=== PATIENT | female | born 1950 | race Caucasian/White ===

== ENCOUNTER → 2018-05-05 | Outpatient (CLI) | payer MEDICARE, OTHER ==
--- NOTE | 2018-05-07 09:39 | MM ---
Reason for exam: screening (asymptomatic). Last mammogram was performed 12 years and 8 months ago. History: Patient is postmenopausal. Took estrogen beginning at age 50. Took progesterone beginning at age 50. MG 3D Screening Mammo W/Cad Bilateral CC and MLO view(s) were taken. Prior study comparison: September 03, 2005, CAD bilateral diagnostic mammogram. September 27, 2003, left breast special view mammogram. There are scattered fibroglandular densities. No discrete abnormality. ASSESSMENT: Benign, BI-RAD 2 RECOMMENDATION: Routine screening mammogram of both breasts in 1 year.
== END ==
LOC: RADMAMWWP 13:30
PROVIDERS: ATTEND Family Medicine
DX: Z12.31 Encounter for screening mammogram for malignant neoplasm of breast (principal)
CPT/HCPCS: 77063; 77067

== ENCOUNTER 2019-08-23 12:29 | Inpatient (IN) | payer MEDICARE, OTHER ==
[2019-08-23] MEDS ORDERED: DILTIAZEM DRIP BOLUS FROM BAG 1 MG SOLN IV ONE ×3 (12:55→16:24)
--- NOTE | 2019-08-23 13:10 | ED ---
General Adult HPI - General Chief complaint: Arrhythmia/Palpitations Stated complaint: Tachy Time Seen by Provider: 08/23/19 12:41 Source: patient, family, RN notes reviewed Mode of arrival: ambulatory Limitations: no limitations - History of Present Illness Initial comments: Patient is a pleasant 69-year-old female presenting to the emergency department after being evaluated at primary care physician for tachycardia. Patient went to evaluation for complaints of sinus congestion. Patient denies any chest pain or palpitations. No fatigue or dyspnea. No history of previous arrhythmia. Patient states other than sinus congestion she is symptom-free. No fever. No leg pain or leg swelling. - Related Data Home Medications Medication Instructions Recorded Confirmed Lisinopril [Prinivil] 5 mg PO HS 08/23/19 08/23/19 amLODIPine [Norvasc] 10 mg PO DAILY 08/23/19 08/23/19 Allergies Allergy/AdvReac Type Severity Reaction Status Date / Time tetanus toxoid, adsorbed Allergy Swelling Verified 08/23/19 14:10 codeine AdvReac Abdominal Verified 08/23/19 14:10 Pain pseudoephedrine HCl AdvReac Hallucinati Verified 08/23/19 14:10 [facility] ons Review of Systems ROS Statement: Those systems with pertinent positive or pertinent negative responses have been documented in the HPI. ROS Other: All systems not noted in ROS Statement are negative. Constitutional: Denies: fever Eyes: Denies: eye pain ENT: Reports: congestion. Denies: ear pain Respiratory: Denies: cough, dyspnea Cardiovascular: Denies: chest pain, palpitations Endocrine: Denies: fatigue Gastrointestinal: Denies: abdominal pain Genitourinary: Denies: dysuria Musculoskeletal: Denies: back pain Skin: Denies: rash Neurological: Denies: weakness Past Medical History Past Medical History: No Reported History History of Any Multi-Drug Resistant Organisms: None Reported Past Surgical History: Tubal Ligation Past Psychological History: No Psychological Hx Reported Smoking Status: Former smoker Past Alcohol Use History: None Reported Past Drug Use History: None Reported General Exam Limitations: no limitations General appearance: alert, in no apparent distress Head exam: Present: normocephalic Eye exam: Present: normal appearance, PERRL ENT exam: Present: normal oropharynx Neck exam: Present: normal inspection Respiratory exam: Present: normal lung sounds bilaterally Cardiovascular Exam: Present: tachycardia, irregular rhythm Expanded Peripheral pulses: 2+: Radial (R), Radial (L), Dorsalis Pedis (R), Dorsalis Pedis (L) GI/Abdominal exam: Present: soft. Absent: tenderness Extremities exam: Present: normal inspection. Absent: pedal edema, calf tender ness Neurological exam: Present: alert Psychiatric exam: Present: normal affect, normal mood Skin exam: Present: normal color Course Vital Signs 08/23/19 08/23/19 12:32 14:49 Temperature 97.6 F Pulse Rate 156 H 140 H Respiratory 18 18 Rate Blood Pressure 123/77 94/77 O2 Sat by Pulse 98 96 Oximetry EKG Findings - EKG Comments: EKG Findings:: A. fib with RVR, rate 165. QRS 84. QT 292. QTC 43. Normal axis. Normal QRS. Nonspecific ST-T. Medical Decision Making - Medical Decision Making Patient reevaluated and resting comfortably in bed. Heart rate 120-140. Patient and family updated on results and plan. Dr. Olmos has been paged for admission of his patient. - Lab Data Result diagrams: 08/23/19 12:50 08/23/19 12:50 Lab Results 08/23/19 08/23/19 08/23/19 Range/Units 12:50 12:50 12:50 WBC 8.7 (3.8-10.6) k/uL RBC 4.42 (3.80-5.40) m/uL Hgb 11.9 (11.4-16.0) gm/dL Hct 38.4 (34.0-46.0) % MCV 87.0 (80.0-100.0) fL MCH 27.0 (25.0-35.0) pg MCHC 31.0 (31.0-37.0) g/dL RDW 14.1 (11.5-15.5) % Plt Count 383 (150-450) k/uL Neutrophils % 71 % Lymphocytes % 15 % Monocytes % 7 % Eosinophils % 3 % Basophils % 1 % Neutrophils # 6.2 (1.3-7.7) k/uL Lymphocytes # 1.3 (1.0-4.8) k/uL Monocytes # 0.6 (0-1.0) k/uL Eosinophils # 0.3 (0-0.7) k/uL Basophils # 0.1 (0-0.2) k/uL PT 10.7 (9.0-12.0) sec INR 1.0 (<1.2) APTT 26.1 (22.0-30.0) sec Sodium 140 (137-145) mmol/L Potassium 3.7 (3.5-5.1) mmol/L Chloride 103 (98-107) mmol/L Carbon Dioxide 23 (22-30) mmol/L Anion Gap 14 mmol/L BUN 14 (7-17) mg/dL Creatinine 0.50 L (0.52-1.04) mg/dL Est GFR (CKD-EPI)AfAm >90 (>60 ml/min/1.73 sqM) Est GFR (CKD-EPI)NonAf >90 (>60 ml/min/1.73 sqM) Glucose 107 H (74-99) mg/dL Calcium 10.1 (8.4-10.2) mg/dL Magnesium 2.0 (1.6-2.3) mg/dL Total Bilirubin 0.4 (0.2-1.3) mg/dL AST 24 (14-36) U/L ALT 22 (4-34) U/L Alkaline Phosphatase 136 H (38-126) U/L Troponin I (0.000-0.034) ng/mL Total Protein 8.2 (6.3-8.2) g/dL Albumin 4.9 (3.5-5.0) g/dL TSH 2.860 (0.465-4.680) mIU/L 08/23/19 Range/Units 12:50 WBC (3.8-10.6) k/uL RBC (3.80-5.40) m/uL Hgb (11.4-16.0) gm/dL Hct (34.0-46.0) % MCV (80.0-100.0) fL MCH (25.0-35.0) pg MCHC (31.0-37.0) g/dL RDW (11.5-15.5) % Plt Count (150-450) k/uL Neutrophils % % Lymphocytes % % Monocytes % % Eosinophils % % Basophils % % Neutrophils # (1.3-7.7) k/uL Lymphocytes # (1.0-4.8) k/uL Monocytes # (0-1.0) k/uL Eosinophils # (0-0.7) k/uL Basophils # (0-0.2) k/uL PT (9.0-12.0) sec INR (<1.2) APTT (22.0-30.0) sec Sodium (137-145) mmol/L Potassium (3.5-5.1) mmol/L Chloride (98-107) mmol/L Carbon Dioxide (22-30) mmol/L Anion Gap mmol/L BUN (7-17) mg/dL Creatinine (0.52-1.04) mg/dL Est GFR (CKD-EPI)AfAm (>60 ml/min/1.73 sqM) Est GFR (CKD-EPI)NonAf (>60 ml/min/1.73 sqM) Glucose (74-99) mg/dL Calcium (8.4-10.2) mg/dL Magnesium (1.6-2.3) mg/dL Total Bilirubin (0.2-1.3) mg/dL AST (14-36) U/L ALT (4-34) U/L Alkaline Phosphatase (38-126) U/L Troponin I <0.012 (0.000-0.034) ng/mL Total Protein (6.3-8.2) g/dL Albumin (3.5-5.0) g/dL TSH (0.465-4.680) mIU/L - Radiology Data Radiology results: image reviewed (Chest x-ray shows no acute cardio pulmonary process. Age indeterminate compression deformities thoraco- lumbar) Disposition Clinical Impression: Atrial fibrillation with RVR Disposition: ADMITTED IP TO THIS HOSP Is patient prescribed a controlled substance at d/c from ED?: No Referrals: Lex Olmos MD [Primary Care Provider] - 1-2 days Decision Time: 14:54
[2019-08-23 13:13] LABS: Basophils # (A) 0.1 k/uL (0-0.2); Basophils % (A) 1 %; Eosinophils # (A) 0.3 k/uL (0-0.7); Eosinophils % (A) 3 %; HCT 38.4 % (34.0-46.0); HGB 11.9 gm/dL (11.4-16.0); Lymphocytes # (A) 1.3 k/uL (1.0-4.8); Lymphocytes % (A) 15 %; Mean Platelet Volume 7.5; Monocytes # (A) 0.6 k/uL (0-1.0); Monocytes % (A) 7 %; Neutrophils # (A) 6.2 k/uL (1.3-7.7); Neutrophils % (A) 71 %; Platelet Count 383 k/uL (150-450); RBC 4.42 m/uL (3.80-5.40); RDW 14.1 % (11.5-15.5); WBC 8.7 k/uL (3.8-10.6)
[2019-08-23 13:17] LABS: ALT 22 U/L (4-34); AST 24 U/L (14-36); African American GFR (CKD) >90 (>60 ml/min/1.73 sqM); Albumin 4.9 g/dL (3.5-5.0); Alkaline Phosphatase 136 U/L (38-126); Anion Gap 14 mmol/L; Blood Urea Nitrogen 14 mg/dL (7-17); Calcium 10.1 mg/dL (8.4-10.2); Carbon Dioxide 23 mmol/L (22-30); Chloride 103 mmol/L (98-107); Glucose 107 mg/dL (74-99); Non-African American GFR(CKD) >90 (>60 ml/min/1.73 sqM); Potassium 3.7 mmol/L (3.5-5.1); Sodium 140 mmol/L (137-145); Total Bilirubin 0.4 mg/dL (0.2-1.3); Total Protein 8.2 g/dL (6.3-8.2)
[2019-08-23 13:20] LABS: Partial Thromboplastin Time 26.1 sec (22.0-30.0); Prothrombin Time 10.7 sec (9.0-12.0)
[2019-08-23] MEDS: DILTIAZEM 125 MG in SODIUM CHLORIDE 0.9% 100 ML IV SCH (13:20)
--- NOTE | 2019-08-23 14:05 | XR ---
EXAMINATION TYPE: XR chest 2V DATE OF EXAM: 08/23/2019 COMPARISON: NONE HISTORY: Dysrhythmia TECHNIQUE: Frontal and lateral views of the chest are obtained. FINDINGS: There is biapical pleural parenchymal scarring. Slight intrusion of the right hemidiaphrag m. Cardiomediastinal limits normal size. Compression deformities of the thoracolumbar junction are se en with diffuse osseous demineralization. These are age indeterminant. No focal consolidation, pleura l effusion or pneumothorax. IMPRESSION: 1. No acute cardiopulmonary process. 2. Age-indeterminate multiple compression deformities (3 contiguous) of the thoracolumbar junction wi th diffuse osseous demineralization. Correlate for point tenderness to evaluate for acuity.
[2019-08-23] MEDS ORDERED: HEPARIN SODIUM,PORCINE 5,000 UNIT/ML 1 ML VIAL IV PRN (14:55)
[2019-08-23] MEDS ORDERED: NITROGLYCERIN SL TABS 0.4 MG TAB SUBLINGUAL PRN (14:55)
[2019-08-23] MEDS ORDERED: ASPIRIN 81 MG PO STA (14:55)
[2019-08-23] MEDS ORDERED: HEPARIN SODIUM,PORCINE 5,000 UNIT/ML 1 ML VIAL IV ONE (14:55)
[2019-08-23] MEDS: HEPARIN SOD,PORK IN 0.45% NACL 25,000 UNIT in 0.45% NACL 1 250ML.BAG IV SCH (15:26)
[2019-08-24] MEDS: DILTIAZEM 125 MG in SODIUM CHLORIDE 0.9% 100 ML IV SCH (00:46)
[2019-08-24 04:10] LABS: Mean Platelet Volume 8.1; Platelet Count 317 k/uL (150-450)
[2019-08-24 04:17] LABS: Cholesterol 159 mg/dL (<200); HDL Cholesterol 44 mg/dL (40-60); LDL Cholesterol,Calculated 96 mg/dL (0-99); Triglycerides 93 mg/dL (<150)
[2019-08-24] MEDS ORDERED: AMIODARONE 360 MG in DEXTROSE 5% IN WATER 200 ML IV ONE ×2 (07:55)
[2019-08-24] MEDS ORDERED: DEXTROSE 5% IN WATER 100 ML with AMIODARONE 150 MG IV ONE (07:55)
--- NOTE | 2019-08-24 08:09 | P.CRDCN ---
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 She went to Dr. Olmos's office yesterday because her had an appointment there, she's been dealing with a sinus infection, she was seen there by the PA who examined her, noted her to be in a rapid irregular rhythm, patient was then advised to come to the hospital for further evaluation. EKG per performed on arrival here showed atrial fibrillation with a rapid ventricular response. Patient was initiated on IV heparin and IV Cardizem drips. Chest x- ray did not reveal any acute cardiopulmonary process. Age indeterminate multiple compression deformities noted. Blood pressure 120/80 with a heart rate this morning in the 130 range, 97% on room air. White blood cell count 8.7, hemoglobin 11.9, platelet count 317. Sodium 140, potassium 3.7, BUN 14, creatinine 0.5. Troponins negative 3. TSH level II.8. Cholesterol 159, LDL 96, HDL 44, triglycerides 93. At the time of my examination this morning, patient feels well, she denies any palpitations, no dizziness or lightheadedness, no shortness of breath. Patient also states that she denies any of these symptoms previously. Past Medical History Past Medical History: Atrial Fibrillation, Hypertension, Osteoarthritis (OA) History of Any Multi-Drug Resistant Organisms: None Reported Past Surgical History: Tubal Ligation Additional Past Surgical History / Comment(s): TENDON TRANSPLANT Past Anesthesia/Blood Transfusion Reactions: No Reported Reaction Past Psychological History: No Psychological Hx Reported Smoking Status: Former smoker Past Alcohol Use History: None Reported Past Drug Use History: None Reported - Past Family History Mother Family Medical History: Congestive Heart Failure (CHF), Diabetes Mellitus Father Additional Family Medical History / Comment(s): DRINKER Medications and Allergies Home Medications Medication Instructions Recorded Confirmed Type Lisinopril [Prinivil] 5 mg PO HS 08/23/19 08/23/19 History amLODIPine [Norvasc] 10 mg PO DAILY 08/23/19 08/23/19 History Allergies Allergy/AdvReac Type Severity Reaction Status Date / Time tetanus toxoid, adsorbed Allergy Swelling Verified 08/23/19 14:10 codeine AdvReac Abdominal Verified 08/23/19 14:10 Pain pseudoephedrine HCl AdvReac Hallucinati Verified 08/23/19 14:10 [From [facility]] ons Physical Exam Vitals: Vital Signs Temp Pulse Pulse Resp BP BP Pulse Ox 08/23/19 20:50 97.8 F 122 H 18 121/80 97 08/23/19 20:46 97.8 F 122 H 16 121/80 97 08/23/19 20:06 98.2 F 130 H 16 131/84 98 08/23/19 16:03 134 H 19 123/78 95 08/23/19 14:49 140 H 18 94/77 96 08/23/19 12:32 97.6 F 156 H 18 123/77 98 Intake and Output 08/23/19 08/24/19 08/24/19 22:59 06:59 14:59 Intake Total 3.867 204.784 Balance 3.867 204.784 Intake: Intake, IV Titration 3.867 204.784 Amount Diltiazem 125 mg In 3.867 92.833 Sodium Chloride 0.9% 100 ml @ 5 MG/HR 5 mls/hr IV .Q24H MANSI Rx#:[id number] Heparin Sod,Pork in 0.45% 111.951 NaCl 25,000 unit In 0.45 % NaCl 1 250ml.bag @ 12 UNITS/KG/HR 7.62 mls/hr IV .Q24H MANSI Rx#: [id number] Other: # Voids 1 Weight 63.503 kg 63.7 kg PHYSICAL EXAMINATION: GENERAL: 69-year-old female in no acute distress at the time of my examination HEENT: Head is atraumatic, normocephalic. Pupils equal, round. Sclera anicteric. Conjunctiva are clear. Mucous membranes of the mouth are moist. Neck is supple. There is no elevated jugular venous pressure. No carotid bruit is heard. HEART EXAMINATION: Heart S1 and S2 irregularly irregular CHEST EXAMINATION: Lungs are clear to auscultation and precussion. No chest wall tenderness is noted on palpation or with deep breathing. ABDOMEN: Soft, nontender. Bowel sounds are heard. No organomegaly noted. EXTREMITIES: 2+ peripheral pulses with no evidence of peripheral edema and no calf tenderness noted. NEUROLOGIC patient is awake, alert and oriented 3 . . Results 08/24/19 03:51 08/23/19 12:50 Cardiac Enzymes 08/23/19 08/23/19 08/23/19 Range/Units 12:50 12:50 18:51 AST 24 (14-36) U/L Troponin I <0.012 <0.012 (0.000-0.034) ng/mL 08/24/19 Range/Units 00:55 AST (14-36) U/L Troponin I <0.012 (0.000-0.034) ng/mL Coagulation 08/23/19 08/23/19 08/24/19 Range/Units 12:50 22:26 03:51 PT 10.7 (9.0-12.0) sec APTT 26.1 39.6 H 39.7 H (22.0-30.0) sec Lipids 08/24/19 Range/Units 03:51 Triglycerides 93 (<150) mg/dL Cholesterol 159 (<200) mg/dL HDL Cholesterol 44 (40-60) mg/dL CBC 08/23/19 08/24/19 Range/Units 12:50 03:51 WBC 8.7 (3.8-10.6) k/uL RBC 4.42 (3.80-5.40) m/uL Hgb 11.9 (11.4-16.0) gm/dL Hct 38.4 (34.0-46.0) % Plt Count 383 317 (150-450) k/uL Comprehensive Metabolic Panel 08/23/19 Range/Units 12:50 Sodium 140 (137-145) mmol/L Potassium 3.7 (3.5-5.1) mmol/L Chloride 103 (98-107) mmol/L Carbon Dioxide 23 (22-30) mmol/L BUN 14 (7-17) mg/dL Creatinine 0.50 L (0.52-1.04) mg/dL Glucose 107 H (74-99) mg/dL Calcium 10.1 (8.4-10.2) mg/dL AST 24 (14-36) U/L ALT 22 (4-34) U/L Alkaline Phosphatase 136 H (38-126) U/L Total Protein 8.2 (6.3-8.2) g/dL Albumin 4.9 (3.5-5.0) g/dL Current Medications Generic Name Dose Route Start Last Admin Trade Name Karla PRN Reason Stop Dose Admin Aspirin 325 mg 08/24/19 09:00 Aspirin PO DAILY MANSI Heparin Sodium (Porcine) 0 unit 08/23/19 14:55 Heparin IV Q6HR PRN Low PTT Protocol Diltiazem HCl 125 mg/ Sodium 125 mls @ 5 mls/hr 08/23/19 13:00 08/24/19 00:46 Chloride IV 10 mg/hr .Q24H MANSI 10 mls/hr Administration 5 MG/HR Heparin Sodium/Sodium Chloride 250 mls @ 7.62 mls/hr 08/23/19 15:00 08/24/19 05:09 25,000 unit/ Sodium Chloride IV 16 units/kg/hr .Q24H MANSI 10.16 mls/hr Titration Protocol 12 UNITS/KG/HR Nitroglycerin 0.4 mg 08/23/19 14:55 Nitrostat SUBLINGUAL Q5M PRN Chest Pain Sodium Chloride 10 ml 08/23/19 21:00 Saline Flush IV BID MANSI Intake and Output 08/23/19 08/24/19 08/24/19 22:59 06:59 14:59 Intake Total 3.867 204.784 Balance 3.867 204.784 Intake: Intake, IV Titration 3.867 204.784 Amount Diltiazem 125 mg In 3.867 92.833 Sodium Chloride 0.9% 100 ml @ 5 MG/HR 5 mls/hr IV .Q24H MANSI Rx#:[id number] Heparin Sod,Pork in 0.45% 111.951 NaCl 25,000 unit In 0.45 % NaCl 1 250ml.bag @ 12 UNITS/KG/HR 7.62 mls/hr IV .Q24H MANSI Rx#: [id number] Other: # Voids 1 Weight 63.503 kg 63.7 kg 08/24/19 03:51 08/23/19 12:50 EKG Interpretations (text) EKG shows atrial fibrillation with rapid ventricular response Assessment and Plan Plan: Assessment and plan #1 atrial fibrillation with rapid ventricular response, appears to be of new onset for the patient. #2 hypertension Plan We will obtain an echocardiogram with Doppler study as well as a TSH level. We will start the patient on IV amiodarone drip. Continue IV heparin. Patient was also educated regarding the importance of anticoagulation for stroke prevention. Further recommendations to follow. DNP note has been reviewed, I agree with a documented findings and plan of care. Patient was seen and examined.
[2019-08-24] MEDS ORDERED: ASPIRIN 325 MG TAB PO SCH (09:00)
[2019-08-24] MEDS: APIXABAN 5 MG TAB PO SCH ×2 (09:21→20:03)
[2019-08-24] MEDS: METOPROLOL TARTRATE 50 MG TAB PO SCH ×2 (09:21→20:03)
[2019-08-24] MEDS: AMIODARONE 300 MG in DEXTROSE 5% IN WATER 250 ML IV SCH ×2 (14:00)
[2019-08-24] MEDS: HEPARIN SOD,PORK IN 0.45% NACL 25,000 UNIT in 0.45% NACL 1 250ML.BAG IV SCH (15:26)
--- NOTE | 2019-08-24 18:32 | ECHOF ---
Referral Reason:afib MEASUREMENTS -------- HEIGHT: 170.2 cm WEIGHT: 63.5 kg BP: RVIDd: 2.1 cm (< 3.3) IVSd: 0.8 cm (0.6 - 1.1) LVIDd: 4.4 cm (3.9 - 5.3) LVPWd: 1.0 cm (0.6 - 1.1) IVSs: 1.3 cm LVIDs: 2.3 cm LVPWs: 1.5 cm LAESV Index (A-L): 38.81 ml/m Ao Diam: 2.8 cm (2.0 - 3.7) AV Cusp: 2.1 cm (1.5 - 2.6) LA Diam: 4.1 cm (2.7 - 3.8) RAP: 5.00 mmHg RVSP: 47.14 mmHg FINDINGS -------- Atrial fibrillation. This was a technically difficult study with suboptimal views. The left ventricular size is normal. Left ventricular wall thickness is normal. Overall left vent ricular systolic function is low-normal with, an EF between 50 - 55 %. Left ventricular fillimg pre ssure cannot be estimated due to Atrial fibrillation. The right ventricle is normal in size. LA is moderately dilated 34-39 ml/m2 The right atrial size is normal. Lumason used The aortic valve is trileaflet and appears structurally normal. The mitral valve is normal. The mitral valve leaflets are mildly thickened. Mild mitral regurgita tion is present. The tricuspid valve appears structurally normal. Mild tricuspid regurgitation present. There is m ild pulmonary hypertension. The right ventricular systolic pressure, as measured by Doppler, is 47. 14mmHg. There is no pulmonic regurgitation present. The aortic root size is normal. IVC Not well visulized. There is no pericardial effusion. CONCLUSIONS -------- 1. Atrial fibrillation. 2. This was a technically difficult study with suboptimal views. 3. The left ventricular size is normal. 4. Left ventricular wall thickness is normal. 5. Overall left ventricular systolic function is low-normal with, an EF between 50 - 55 %. 6. Left ventricular fillimg pressure cannot be estimated due to Atrial fibrillation. 7. The right ventricle is normal in size. 8. LA is moderately dilated 34-39 ml/m2 9. The right atrial size is normal. 10. Lumason used 11. The aortic valve is trileaflet and appears structurally normal. 12. The mitral valve is normal. 13. The mitral valve leaflets are mildly thickened. 14. Mild mitral regurgitation is present. 15. The tricuspid valve appears structurally normal. 16. Mild tricuspid regurgitation present. 17. There is mild pulmonary hypertension. 18. The right ventricular systolic pressure, as measured by Doppler, is 47.14mmHg. 19. There is no pulmonic regurgitation present. 20. The aortic root size is normal. 21. IVC Not well visulized. 22. There is no pericardial effusion. PAINTER ROUGH: Alize Haynes RDCS
[2019-08-24 19:14] LABS: Appearance,Urine Cloudy (Clear); Bilirubin,Urine Negative (Negative); Blood,Urine Moderate (Negative); Color,Urine Yellow; Glucose,Urine (UA) Negative (Negative); Ketones,Urine Negative (Negative); Leukocyte Esterase,Urine Large (Negative); Mucus,Urine Occasional /hpf; Nitrite,Urine Negative (Negative); PH, Urine 6.5 (5.0-8.0); Protein,Urine 1+ (Negative); RBC,Urine >182 /hpf (0-5); Specific Gravity,Urine 1.021 (1.001-1.035); Squamous Epithelial Cell,Urine <1 /hpf (0-4); WBC,Urine >182 /hpf (0-5)
[2019-08-24] MEDS: AMOXIC-POT CLAV 500-125 MG 1 EACH TAB PO SCH (20:03)
--- NOTE | 2019-08-24 22:56 | P.HPIM ---
History of Present Illness H&P Date: 08/24/19 Chief Complaint: Rapid heart rate The patient is here essentially because of significant problems related to SVT found on EKG yesterday in the office. She was evaluated and found to have new onset atrial fibrillation with rapid response. She has now been placed on a Cardizem drip a cardiology has been consulted. No previous history of arrhythmia in Review of Systems Constitutional: Denies chills, Denies fever Eyes: denies blurred vision, denies pain Ears, nose, mouth and throat: Denies headache, Denies sore throat Cardiovascular: Reports as per HPI, Reports rapid heart beat, Denies chest pain, Denies shortness of breath Respiratory: Denies cough Gastrointestinal: Denies abdominal pain, Denies diarrhea, Denies nausea, Denies vomiting Genitourinary: Denies dysuria, Denies hematuria Musculoskeletal: Denies myalgias Past Medical History Past Medical History: Atrial Fibrillation, Hypertension, Osteoarthritis (OA) History of Any Multi-Drug Resistant Organisms: None Reported Past Surgical History: Tubal Ligation Additional Past Surgical History / Comment(s): TENDON TRANSPLANT Past Anesthesia/Blood Transfusion Reactions: No Reported Reaction Past Psychological History: No Psychological Hx Reported Smoking Status: Former smoker Past Alcohol Use History: None Reported Past Drug Use History: None Reported - Past Family History Mother Family Medical History: Congestive Heart Failure (CHF), Diabetes Mellitus Father Additional Family Medical History / Comment(s): DRINKER Medications and Allergies Home Medications Medication Instructions Recorded Confirmed Type Lisinopril [Prinivil] 5 mg PO HS 08/23/19 08/23/19 History amLODIPine [Norvasc] 10 mg PO DAILY 08/23/19 08/23/19 History Allergies Allergy/AdvReac Type Severity Reaction Status Date / Time tetanus toxoid, adsorbed Allergy Swelling Verified 08/23/19 14:10 codeine AdvReac Abdominal Verified 08/23/19 14:10 Pain pseudoephedrine HCl AdvReac Hallucinati Verified 08/23/19 14:10 [From [facility]] ons Physical Exam Vitals: Vital Signs Temp Pulse Resp BP Pulse Ox 08/24/19 20:18 97.6 F 117 H 18 124/74 97 08/24/19 15:58 97.8 F 95 12 115/76 97 08/24/19 12:00 95 12 08/24/19 10:51 97.9 F 95 12 112/65 96 08/24/19 09:45 119 H 14 142/99 97 08/24/19 09:30 137 H 16 111/63 94 L 08/24/19 09:20 129 H 12 129/66 08/24/19 09:15 129 H 14 113/68 94 L 08/24/19 08:00 144 H 14 08/24/19 07:55 97.9 F 144 H 16 103/77 93 L Intake and Output 08/24/19 08/24/19 08/24/19 06:59 14:59 22:59 Intake Total 204.784 480 240 Balance 204.784 480 240 Intake: Intake, IV Titration 204.784 Amount Diltiazem 125 mg In 92.833 Sodium Chloride 0.9% 100 ml @ 5 MG/HR 5 mls/hr IV .Q24H MANSI Rx#:[id number] Heparin Sod,Pork in 0.45% 111.951 NaCl 25,000 unit In 0.45 % NaCl 1 250ml.bag @ 12 UNITS/KG/HR 7.62 mls/hr IV .Q24H MANSI Rx#: [id number] Oral 480 240 Other: Voiding Method Toilet # Voids 1 2 1 Weight 63.7 kg - Constitutional General appearance: no acute distress, thin - EENT Eyes: EOMI - Neck Neck: no lymphadenopathy - Respiratory Respiratory: bilateral: CTA - Cardiovascular Heart rate: 150 Heart sounds: normal: S1, S2 Abnormal Heart Sounds: no S3 Gallop - Gastrointestinal General gastrointestinal: no organomegaly, soft, no tenderness - Neurologic Neurologic: CNII-XII intact - Musculoskeletal Musculoskeletal: gait normal - Psychiatric Psychiatric: A&O x's 3 Results CBC & Chem 7: 08/24/19 03:51 08/23/19 12:50 Labs: Abnormal Lab Results - Last 24 Hours (Table) 08/23/19 08/24/19 08/24/19 Range/Units 22:26 03:51 10:12 APTT 39.6 H 39.7 H 56.2 H (22.0-30.0) sec Urine Appearance (Clear) Urine Protein (Negative) Urine Blood (Negative) Ur Leukocyte Esterase (Negative) Urine RBC (0-5) /hpf Urine WBC (0-5) /hpf Urine WBC Clumps (None) /hpf Urine Mucus (None) /hpf 08/24/19 Range/Units 18:00 APTT (22.0-30.0) sec Urine Appearance Cloudy H (Clear) Urine Protein 1+ H (Negative) Urine Blood Moderate H (Negative) Ur Leukocyte Esterase Large H (Negative) Urine RBC >182 H (0-5) /hpf Urine WBC >182 H (0-5) /hpf Urine WBC Clumps Many H (None) /hpf Urine Mucus Occasional H (None) /hpf Thrombosis Risk Factor Assmnt - Choose All That Apply Any of the Below Risk Factors Present?: No Each Risk Factor Represents 2 Points: Age 61-74 years Thrombosis Risk Factor Assessment Total Risk Factor Score: 2 Thrombosis Risk Factor Assessment Level: Low Risk Assessment and Plan (1) Dysuria Current Visit: Yes Status: Acute Code(s): R30.0 - DYSURIA SNOMED Code(s): 17555485 (2) Hypertension Current Visit: Yes Status: Acute Code(s): I10 - ESSENTIAL (PRIMARY) HYPERTENSION SNOMED Code(s): 18003134 (3) Atrial fibrillation with RVR Current Visit: Yes Status: Acute Code(s): I48.91 - UNSPECIFIED ATRIAL FIBRIL LATION SNOMED Code(s): 815480057698270 (4) Sinusitis Current Visit: No Status: Acute Code(s): J32.9 - CHRONIC SINUSITIS, UNSPECIFIED SNOMED Code(s): 52775702 Plan: Continue Cardizem drip. We will otherwise probably start anticoagulation and get echocardiogram. Reconcile medications except for Norvasc. The patient is a full code. Time with Patient: Greater than 30
[2019-08-25] MEDS: AMIODARONE 300 MG in DEXTROSE 5% IN WATER 250 ML IV SCH ×2 (01:13)
[2019-08-25 06:05] LABS: Mean Platelet Volume 7.6; Platelet Count 327 k/uL (150-450)
[2019-08-25 06:18] LABS: African American GFR (CKD) >90 (>60 ml/min/1.73 sqM); Anion Gap 9 mmol/L; Blood Urea Nitrogen 16 mg/dL (7-17); Calcium 9.2 mg/dL (8.4-10.2); Carbon Dioxide 23 mmol/L (22-30); Chloride 105 mmol/L (98-107); Glucose 90 mg/dL (74-99); Non-African American GFR(CKD) >90 (>60 ml/min/1.73 sqM); Potassium 4.3 mmol/L (3.5-5.1); Sodium 137 mmol/L (137-145)
--- NOTE | 2019-08-25 07:48 | P.PN ---
Subjective Progress Note Date: 08/25/19 Principal diagnosis: This is a continue progress on a 69-year-old white female essentially admitted for new-onset atrial fibrillation. Heart rate still somewhat tachycardic. The patient is otherwise a symptomatic. No overt chest pain or shortness of breath. No nausea or vomiting. Tolerating diet appropriately. Otherwise no voiding difficulties Objective - Vital Signs Vital signs: Vital Signs Temp 97.8 F 08/25/19 05:14 Pulse 102 H 08/25/19 05:14 Resp 16 08/25/19 05:14 BP 113/77 08/25/19 05:14 Pulse Ox 94 L 08/25/19 05:14 Intake & Output 08/24/19 08/25/19 08/25/19 18:59 06:59 18:59 Intake Total 720 250 Balance 720 250 Weight 64 kg Intake: Intake, IV Titration 250 Amount Amiodarone 300 mg In 250 Dextrose 5% in Water 250 ml @ 0.5 MG/MIN 25 mls/hr IV .Q10H [facility] Rx#: [id number] Oral 720 Other: Voiding Method Toilet # Voids 2 1 - Constitutional General appearance: Present: thin - EENT Eyes: Absent: abnormal pupil - Neck Neck: Absent: lymphadenopathy - Respiratory Respiratory: bilateral: CTA - Cardiovascular Heart rate: 110 Rhythm: irregularly irregular Heart sounds: normal: S1, S2 Abnormal Heart Sounds: Absent: S3 Gallop - Gastrointestinal General gastrointestinal: Present: soft. Absent: tenderness - Integumentary Integumentary: Absent: cyanotic - Psychiatric Psychiatric: Present: A&O x's 3, appropriate affect - Labs CBC & Chem 7: 08/25/19 05:28 08/25/19 05:28 Labs: Abnormal Lab Results - Last 24 Hours (Table) 08/24/19 08/24/19 Range/Units 10:12 18:00 APTT 56.2 H (22.0-30.0) sec Urine Appearance Cloudy H (Clear) Urine Protein 1+ H (Negative) Urine Blood Moderate H (Negative) Ur Leukocyte Esterase Large H (Negative) Urine RBC >182 H (0-5) /hpf Urine WBC >182 H (0-5) /hpf Urine WBC Clumps Many H (None) /hpf Urine Mucus Occasional H (None) /hpf Microbiology - Last 24 Hours (Table) 08/24/19 18:00 Urine Culture - Preliminary Urine,Clean Catch Assessment and Plan (1) Dysuria Current Visit: Yes Status: Acute Code(s): R30.0 - DYSURIA SNOMED Code(s): 53603072 (2) Hypertension Current Visit: Yes Status: Acute Code(s): I10 - ESSENTIAL (PRIMARY) HYPERTENSION SNOMED Code(s): 77290679 (3) Atrial fibrillation with RVR Current Visit: Yes Status: Acute Code(s): I48.91 - UNSPECIFIED ATRIAL FIBRILLATION SNOMED Code(s): 027514545113249 (4) Sinusitis Current Visit: No Status: Inactive Code(s): J32.9 - CHRONIC SINUSITIS, UNSPECIFIED SNOMED Code(s): 23196768 Plan: The patient is now been titrated amiodarone Continue anticoagulation Reconcile medications except for Norvasc. The patient is a full code. Check CBC and CMP in a.m. Time with Patient: Less than 30
[2019-08-25] MEDS: METOPROLOL TARTRATE 50 MG TAB PO SCH ×2 (08:09→20:49)
[2019-08-25] MEDS: AMOXIC-POT CLAV 500-125 MG 1 EACH TAB PO SCH ×2 (08:09→20:49)
[2019-08-25] MEDS: APIXABAN 5 MG TAB PO SCH ×2 (08:09→20:49)
[2019-08-25] MEDS: AMIODARONE 200 MG TAB PO SCH ×4 (08:10→20:49)
--- NOTE | 2019-08-25 11:25 | P.PN ---
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 She went to Dr. Olmos's office yesterday because her had an appointment there, she's been dealing with a sinus infection, she was seen there by the PA who examined her, noted her to be in a rapid irregular rhythm, patient was then advised to come to the hospital for further evaluation. EKG per performed on arrival here showed atrial fibrillation with a rapid ventricular response. Patient was initiated on IV heparin and IV Cardizem drips. Chest x- ray did not reveal any acute cardiopulmonary process. Age indeterminate multiple compression deformities noted. Blood pressure 120/80 with a heart rate this morning in the 130 range, 97% on room air. White blood cell count 8.7, hemoglobin 11.9, platelet count 317. Sodium 140, potassium 3.7, BUN 14, creatinine 0.5. Troponins negative 3. TSH level II.8. Cholesterol 159, LDL 96, HDL 44, triglycerides 93. At the time of my examination this morning, patient feels well, she denies any palpitations, no dizziness or lightheadedness, no shortness of breath. Patient also states that she denies any of these symptoms previously. 08/25/2019 Patient was seen and examined this morning, feels well, denies any palpitations or shortness of breath. Echo showed an ejection fraction of 50-55%. She continues to be in atrial fibrillation with moderately rapid ventricular response. Patient has been recommended tomorrow to undergo a transesophageal echocardiographic study with subsequent cardioversion. The risks and the benefits were explained in detail, this will be performed tomorrow by Dr. Huerta. Objective - Vital Signs Vital signs: Vital Signs Temp 98.4 F 08/25/19 08:00 Pulse 112 H 08/25/19 08:00 Resp 17 08/25/19 08:00 BP 110/79 08/25/19 08:00 Pulse Ox 96 08/25/19 08:00 Intake & Output 08/24/19 08/25/19 08/25/19 18:59 06:59 18:59 Intake Total 720 250 360 Balance 720 250 360 Weight 64 kg Intake: Intake, IV Titration 250 Amount Amiodarone 300 mg In 250 Dextrose 5% in Water 250 ml @ 0.5 MG/MIN 25 mls/hr IV .Q10H [facility] Rx#: [id number] Oral 720 360 Other: Voiding Method Toilet Toilet # Voids 2 1 - Exam PHYSICAL EXAMINATION: GENERAL: 69-year-old female in no acute distress at the time of my examination HEENT: Head is atraumatic, normocephalic. Pupils equal, round. Sclera anicteric. Conjunctiva are clear. Mucous membranes of the mouth are moist. Neck is supple. There is no elevated jugular venous pressure. No carotid bruit is heard. HEART EXAMINATION: Heart S1 and S2 irregularly irregular CHEST EXAMINATION: Lungs are clear to auscultation and precussion. No chest wall tenderness is noted on palpation or with deep breathing. ABDOMEN: Soft, nontender. Bowel sounds are heard. No organomegaly noted. EXTREMITIES: 2+ peripheral pulses with no evidence of peripheral edema and no calf tenderness noted. NEUROLOGIC patient is awake, alert and oriented 3 . - Labs CBC & Chem 7: 08/25/19 05:28 08/25/19 05:28 Labs: Abnormal Lab Results - Last 24 Hours (Table) 08/24/19 Range/Units 18:00 Urine Appearance Cloudy H (Clear) Urine Protein 1+ H (Negative) Urine Blood Moderate H (Negative) Ur Leukocyte Esterase Large H (Negative) Urine RBC >182 H (0-5) /hpf Urine WBC >182 H (0-5) /hpf Urine WBC Clumps Many H (None) /hpf Urine Mucus Occasional H (None) /hpf Microbiology - Last 24 Hours (Table) 08/24/19 18:00 Urine Culture - Preliminary Urine,Clean Catch Assessment and Plan Plan: Assessment and plan #1 atrial fibrillation with rapid ventricular response, appears to be of new onset for the patient. #2 hypertension Plan Echocardiogram with Doppler study was performed which revealed an ejection fraction of 50-55%. The patient's rate today remains elevated. She's been recommended to undergo JOAQUIN and elective cardioversion tomorrow. We will increase her dose of beta alan to 50 mg by mouth twice a day today. IV amiodarone was discontinued, we'll put the patient on oral amiodarone. DNP note has been reviewed, I agree with a documented findings and plan of care. Patient was seen and examined.
[2019-08-25] MEDS ORDERED: SODIUM CHLORIDE 0.9% 1,000 ML IV SCH (11:30)
[2019-08-26] MEDS: AMIODARONE 200 MG TAB PO SCH (06:26)
[2019-08-26] MEDS: APIXABAN 5 MG TAB PO SCH (06:26)
[2019-08-26] MEDS: METOPROLOL TARTRATE 50 MG TAB PO SCH (06:26)
[2019-08-26 06:50] LABS: Mean Platelet Volume 7.8; Platelet Count 307 k/uL (150-450)
[2019-08-26] MEDS ORDERED: LACTATED RINGERS 1,000 ML IV ONE ×2 (08:10)
[2019-08-26] MEDS: BENZOCAINE SPRAY 1 CAN MUCOUS MEM ONE ×2 (08:22→08:24)
[2019-08-26] MEDS ORDERED: PROPOFOL 10 MG/ML 20 ML VIAL IV ONE (08:23)
[2019-08-26] MEDS ORDERED: SODIUM CHLORIDE 0.9% 1,000 ML IV SCH (08:45)
--- NOTE | 2019-08-26 08:56 | ECHOT ---
TRANSESOPHAGEAL ECHOCARDIOGRAM INDICATION: Evaluation of left atrial appendage. PROCEDURE: After explaining the procedure to the patient, its risks and the complications, blood pressure, heart rate, O2 saturation was monitored. The throat was sprayed with Cetacaine. She received sedation per anesthesia department. The probe was introduced in the esophagus without difficulty. Images were obtained. The probe was removed. There was no immediate complication. FINDINGS: Left atrial size is mildly dilated. Left atrial appendage is normal. Spontaneous contrast was noted. Left ventricular size is normal. There is evidence of mild global hypokinesis, estimated ejection fraction 45%. The aortic valve appears to be normal. Mild thickening of the mitral valve leaflets was noted. Tricuspid valve is normal. Pulmonic valve is normal. Descending thoracic aorta revealed mild atherosclerotic changes. No pericardial effusion was noted. Contrast bubble study revealed no evidence of shunting across the interatrial septum. Doppler pulse wave and color Doppler obtained and revealed mild to moderate mitral with moderate tricuspid regurgitation. There was no shunting by color Doppler study. CONCLUSION: 1. Mildly dilated left atrium with normal appearance left atrial appendage with spontaneous contrast. 2. Normal left ventricular size with mild global hypokinesis. 3. Mild to moderate mitral with moderate tricuspid regurgitation and trace pulmonic regurgitation. 4. Mild atherosclerotic changes of the descending thoracic aorta. MMODL / IJN: [id number] /
--- NOTE | 2019-08-26 08:56 | CE ---
CARDIAC ELECTROPHYSIOLOGY REPORT CARDIOVERSION PROCEDURE NOTE: INDICATION: Atrial fibrillation. PROCEDURE: After explaining the procedure to the patient, its risks and the complications, and after obtaining sedated state per anesthesia department and performing transesophageal echocardiogram, a synchronized biphasic cardioversion using 200 joules was performed with tenriism normal sinus rhythm. There was no immediate complication. ALANA / RUDY: [id number] /
[2019-08-26] MEDS ORDERED: AMIODARONE 200 MG TAB PO SCH (09:00)
--- NOTE | 2019-08-26 10:26 | PN ---
PROGRESS NOTE Mrs. Colbert is a 69-year-old female with no prior history of coronary artery disease, who was recently noted to be in atrial fibrillation. She continued to have atrial fibrillation with rapid ventricular response. She is denying any chest pain. She feels tired with mild dyspnea. No dizziness,no palpitation, no syncope. She continues to be on amiodarone 200 mg 3 times a day, Eliquis 5 mg twice a day, metoprolol tartrate 50 mg twice a day. PHYSICAL EXAMINATION: Blood pressure 132/90 with a heart rate in the 120s. LUNGS: Clear. HEART: Irregular, regular, S1, S2, no S3, no rub. ABDOMEN: Soft, nontender. EXTREMITIES: No edema. IMPRESSION: 1. Atrial fibrillation of unknown duration appears to recent onset with continuing rapid ventricular response. 2. History of hypertension. RECOMMENDATION: Because of the persistent rapid ventricular responses, in spite of treatment, I would recommend proceeding with transesophageal echocardiogram and JOAQUIN guided cardioversion to restore normal sinus rhythm. Those findings and recommendations were discussed with the patient and he is in full understanding and agreement. MMODL / IJN: [id number] /
[2019-08-26] MEDS: AMOXIC-POT CLAV 500-125 MG 1 EACH TAB PO SCH (10:41)
[2019-08-26 17:39] VITALS: BP 130/62; PULSE 77; RESP 14; TEMP 98.1
--- NOTE | 2019-08-27 07:48 | P.DS ---
Providers Date of admission: 08/23/19 15:00 Attending physician: Lex Olmos Consults: 08/23/19 14:55 Consult Physician Urgent Consulting Provider: Priya Huerta Consult Reason/Comments: New-onset A. fib with RVR Do you want consulting provider notified?: Yes Primary care physician: Lex Olmos - Discharge Diagnosis(es) (1) Dysuria Status: Acute (2) Hypertension Status: Acute (3) Atrial fibrillation with RVR Status: Acute (4) Sinusitis Status: Inactive Hospital Course: This is a discharge summary a 69-year-old white female essentially admitted for new-onset atrial fibrillation. She ended up being placed on Cardizem and amiodarone then had appropriate cardioversion. The patient tolerated the procedure well and was corrected. She was placed on appropriate anticoagulation and follow-up with me in 3-7 days. Patient Condition at Discharge: Stable Plan - Discharge Summary Discharge Rx Participant: No New Discharge Prescriptions: New Amoxic-Pot Clav 500-125 mg [Augmentin 500-125 mg] 1 each PO BID #10 tab Amiodarone [Cordarone] 200 mg PO BID #60 tab Apixaban [Eliquis] 5 mg PO BID #60 tab Metoprolol Tartrate [Lopressor] 50 mg PO BID #60 tab Nitroglycerin Sl Tabs [Nitrostat] 0.4 mg SUBLINGUAL Q5M PRN #50 tab PRN Reason: Chest Pain Continue amLODIPine [Norvasc] 10 mg PO DAILY Lisinopril [Prinivil] 5 mg PO HS Discharge Medication List Lisinopril [Prinivil] 5 mg PO HS 08/23/19 [History] amLODIPine [Norvasc] 10 mg PO DAILY 08/23/19 [History] Amiodarone [Cordarone] 200 mg PO BID #60 tab 08/26/19 [Rx] Amoxic-Pot Clav 500-125 mg [Augmentin 500-125 mg] 1 each PO BID #10 tab 08/26/19 [Rx] Apixaban [Eliquis] 5 mg PO BID #60 tab 08/26/19 [Rx] Metoprolol Tartrate [Lopressor] 50 mg PO BID #60 tab 08/26/19 [Rx] Nitroglycerin Sl Tabs [Nitrostat] 0.4 mg SUBLINGUAL Q5M PRN #50 tab 08/26/19 [Rx] Follow up Appointment(s)/Referral(s): Priya Huerta MD [STAFF PHYSICIAN] - 1 Week (Please keep follow up appointment on Friday with Dr. Huerta.) Lex Olmos MD [Primary Care Provider] - 08/31/19 9:30 am Patient Instructions/Handouts: A-fib (Atrial Fibrillation) (DC), Transesophageal Echocardiogram (DC), Cardioversion (DC) Discharge Disposition: HOME SELF-CARE
--- NOTE | 2019-08-27 16:57 | CDI ---
Documentation Clarification Form Date: 08/27/19 From: Berenice Arce CCS Phone: If you have a question about this query, please contact Nilda Fu, Clinical Operations Manager at [phone] between 8am and 5pm. Admit Date: 08/23/19 Discharge Date: 08/26/19 Patient Name: Dawna Colbert Visit Number: [id number] ATTENTION: The Clinical Documentation Specialists (CDI) and [facility] Coding Staff appreciate your assistance in clarifying documentation. Please respond to the clarification below the line at the bottom and electronically sign. The CDI & [facility] Coding staff will review the response and follow-up if needed. Please note: Queries are made part of the Legal Health Record. If you have any questions, please contact the author of this message via ITS. Dear Dr. Olmos, Atrial Fibrillation is documented in the ED, H&P, PNs, DS. History/Risk Factors: HTN, Valve disease Clinical Indicators: Palpitations EKG/telemetry: Atrial fibrillation with RVR Treatment: JOAQUIN, Cardioversion Consults: Bradley In your professional opinion, can you please clarify the type of Atrial Fibrillation, if known? Chronic/Permanent Paroxysmal Persistent Other, please specify Unable to determine MTDD
== END 2019-08-26 15:15 | disposition home or self-care (01) | DRG 310 ==
LOC: EC 12:29 → 3SCARD 15:00
PROVIDERS: ADMIT Family Medicine; ATTEND Family Medicine
PROC: B24BZZ4 Ultrasonography of Heart with Aorta, Transesophageal (ICD-10-PCS; 2019-08-26)
PROC: 5A2204Z Restoration of Cardiac Rhythm, Single (ICD-10-PCS; principal; 2019-08-26 08:30)
DX: I48.91 Unspecified atrial fibrillation (principal); I47.1 Supraventricular tachycardia; I10 Essential (primary) hypertension; M19.90 Unspecified osteoarthritis, unspecified site; R30.0 Dysuria; J32.9 Chronic sinusitis, unspecified; I08.8 Other rheumatic multiple valve diseases; Z79.899 Other long term (current) drug therapy; Z88.5 Allergy status to narcotic agent; Z98.890 Other specified postprocedural states; Z87.891 Personal history of nicotine dependence; Z98.51 Tubal ligation status; Z88.7 Allergy status to serum and vaccine; Z88.8 Allergy status to other drugs, medicaments and biological substances; Z83.3 Family history of diabetes mellitus; Z82.49 Family history of ischemic heart disease and other diseases of the circulatory system
CPT/HCPCS: 36415; 71046; 80048; 80053; 80061; 81001; 83735; 84443; 84484; 85025; 85049; 85610; 85730; 87077; 87086; 87186; 92960; 93005; 93306; 93312; 93320; 93325; 96365; 96366; 96368; 96376; 99291

== ENCOUNTER → 2019-11-10 | Outpatient (CLI) | payer MEDICARE, OTHER ==
[2019-11-10 09:54] LABS: HCT 37.9 % (34.0-46.0); HGB 11.5 gm/dL (11.4-16.0); Hypochromasia Marked; MCH 27.6 pg (25.0-35.0); MCHC 30.2 g/dL (31.0-37.0); MCV 91.4 fL (80.0-100.0); Mean Platelet Volume 7.6; Platelet Count 279 k/uL (150-450); RBC 4.15 m/uL (3.80-5.40); RDW 15.9 % (11.5-15.5); WBC 9.2 k/uL (3.8-10.6)
[2019-11-10 10:13] LABS: African American GFR (CKD) >90 (>60 ml/min/1.73 sqM); Anion Gap 9 mmol/L; Blood Urea Nitrogen 14 mg/dL (7-17); Carbon Dioxide 23 mmol/L (22-30); Chloride 109 mmol/L (98-107); Non-African American GFR(CKD) 79 (>60 ml/min/1.73 sqM); Sodium 141 mmol/L (137-145)
== END | disposition home or self-care (01) ==
LOC: LABWHC1 09:23
PROVIDERS: ATTEND Internal Medicine Interventional Cardiology
DX: Z01.818 Encounter for other preprocedural examination (principal); R94.39 Abnormal result of other cardiovascular function study; Z11.59 Encounter for screening for other viral diseases
CPT/HCPCS: 36415; 80051; 82565; 84520; 85027; 87635

== ENCOUNTER 2019-11-12 06:40 | Day surgery (SDC) | payer MEDICARE, OTHER ==
[2019-11-09 16:06] VITALS: BMI 21.9
[~2019-11-12 06:40] MED LIST: ALPRAZolam 0.25 MG TAB PO PRN; ALPRAZolam 0.5 MG TAB PO PRN; ASPIRIN 325 MG TAB PO STA; ATORVASTATIN 80 MG TAB PO STA; NITROGLYCERIN SL TABS 0.4 MG TAB SUBLINGUAL PRN; SODIUM CHLORIDE 0.9% 1,000 ML in EMPTY BAG 1 BAG IV ONE
[2019-11-12 07:13] VITALS: TEMP 98.4
[2019-11-12] MEDS ORDERED: fentaNYL (PF) 50 MCG/ML 2 ML AMP ONE (07:25)
[2019-11-12] MEDS ORDERED: LIDOCAINE 1% INJ 10MG/ML (20 ML MDV) ONE (07:25)
[2019-11-12] MEDS ORDERED: VERAPAMIL 2.5 MG/ML 2 ML AMP ONE (07:25)
[2019-11-12] MEDS ORDERED: fentaNYL (PF) 50 MCG/ML 2 ML AMP IV ONE (07:51)
[2019-11-12] MEDS ORDERED: LIDOCAINE 1% INJ 10MG/ML (20 ML MDV) SQ ONE (07:53)
[2019-11-12] MEDS ORDERED: MIDAZOLAM 2 MG/2 ML VIAL IV ONE (07:54)
[2019-11-12] MEDS ORDERED: VERAPAMIL SYRINGE (5 MG/10 ML) INTRAARTER ONE (07:55)
[2019-11-12] MEDS ORDERED: amLODIPine 5 MG TAB ONE ×2 (07:57→12:07)
[2019-11-12] MEDS ORDERED: amLODIPine 5 MG TAB PO ONE (08:01)
[2019-11-12] MEDS ORDERED: BIVALIRUDIN BOLUS 250 MG/50 ML IV ONE (08:06)
[2019-11-12] MEDS ORDERED: CLOPIDOGREL 75 MG TAB ONE (08:06)
[2019-11-12] MEDS ORDERED: BIVALIRUDIN 250 MG in SODIUM CHLORIDE 0.9% 50 ML IV ONE (08:07)
[2019-11-12] MEDS ORDERED: CLOPIDOGREL 75 MG TAB PO ONE (08:10)
[2019-11-12] MEDS ORDERED: NITROGLYCERIN 1000MCG/10ML SYRINGE INTRACORON ONE (08:12)
[2019-11-12] MEDS ORDERED: IOPAMIDOL-370 125ML BTL INJ ONE (08:19)
[2019-11-12] MEDS ORDERED: IOPAMIDOL-370 100ML BTL INJ ONE (08:27)
[2019-11-12] MEDS ORDERED: ATROPINE SULFATE 0.1 MG/ML 10ML SYRINGE IV PRN (08:46)
[2019-11-12] MEDS ORDERED: NITROGLYCERIN SL TABS 0.4 MG TAB SUBLINGUAL PRN ×2 (08:46→08:47)
[2019-11-12] MEDS ORDERED: RX INFO: IV CONTRAST WAS GIVEN 1 EACH MISC MISCELLANE PRN (08:46)
[2019-11-12] MEDS ORDERED: MAG HYDROX/AL HYDROX/SIMETH 30 ML CUP PO PRN (08:46)
[2019-11-12] MEDS ORDERED: ZOLPIDEM 5 MG TAB PO PRN (08:46)
[2019-11-12] MEDS ORDERED: LISINOPRIL 5 MG TAB PO STA ×2 (08:53→10:35)
[2019-11-12] MEDS ORDERED: METOPROLOL TARTRATE 50 MG TAB PO SCH (09:00)
[2019-11-12] MEDS ORDERED: ATORVASTATIN 40 MG TAB PO SCH (09:00)
[2019-11-12] MEDS ORDERED: SODIUM CHLORIDE 0.9% 1,000 ML IV SCH (09:00)
[2019-11-12] MEDS ORDERED: AMIODARONE 200 MG TAB PO SCH (09:00)
--- NOTE | 2019-11-12 09:38 | CC ---
CARDIAC CATHETERIZATION REPORT Mrs. Colbert is a 69-year-old female with a prior history of cardioversion, prior history of smoking, who had some symptoms of dyspnea, underwent a myocardial perfusion imaging that revealed evidence of inducible ischemia. In view of that, recommendation made regarding cardiac catheterization. The procedures, risks, and complication were discussed with the patient who is in full understanding and agreement. 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 Using Xylocaine anesthesia and Seldinger technique, a 6-Nicaraguan sheath was introduced in the right radial artery. Selective right and left coronary angiography were performed using 5- Nicaraguan 3.5 bend right and left Tereso catheter, multiple views of the coronary artery including hemiaxial views obtained. Following that an angioplasty and stenting was performed, following that 5-Nicaraguan tight pigtail catheter was introduced in the ventricle and pressures were calculated. Following that, catheter and sheath were removed. Hemostasis was obtained with deployment of a TR band. There was no immediate complication. Patient is returned to her room in stable condition. Of note, the patient received intra-arterial verapamil. FINDINGS: FLUOROSCOPY: There was significant calcification involving the left anterior descending artery as well as the right coronary artery. LEFT MAIN: This is a large-sized vessel, bifurcating into left circumflex, left anterior descending artery. Left main coronary artery has no evidence of high-grade stenosis. LEFT ANTERIOR DESCENDING ARTERY: This is a large-sized vessel, reaching toward the apex, calcified in the proximal segment. It gives rise to three diagonal branches, the first one is very proximal, the left anterior descending artery proximally has an intimal disease of 20%-30% throughout the proximal and mid segment without any critical stenosis. LEFT CIRCUMFLEX: This is a nondominant vessel, moderate in caliber, giving rise to one obtuse marginal branch. The left circumflex has mild plaque proximally of 20%. The rest of the vessel has no high-grade stenosis. RIGHT CORONARY ARTERY: This is a large dominant vessel, bifurcating distally into PDA and posterolateral segment and branches, tortuous throughout its course. The proximal right coronary artery has an an eccentric lesion of 70%. The rest of the mid segment has a 20% plaque. The rest of the vessel has no high-grade stenosis. LEFT VENTRICULOGRAM: Left ventriculogram was not performed. HEMODYNAMICS: There was no gradient across the aortic valve. The left ventricular end- diastolic pressure was calculated at 12-15 mmHg. CONCLUSION: 1. Calcified coronary artery. 2. Significant stenosis in the proximal mid segment of the right coronary artery. 3. Mild disease in the LAD and the left circumflex. RECOMMENDATION: In view of finding anatomy, I recommend proceeding with angioplasty and stenting of the right coronary artery. The procedures, risks, and complication were discussed with the patient, who is in full understanding and agreement. MMJOMAR / IJN: [id number] /
--- NOTE | 2019-11-12 09:53 | PTCA ---
PERCUTANEOUSTRANS CORORONARY ANGIOGRAPHY Mrs. Colbert is a 69-year-old female who had an abnormal myocardial perfusion imaging, underwent cardiac catheterization, was found to have significant stenosis involving the proximal mid segment of the right coronary artery in a calcified segment. In view of that, recommendation made regarding angioplasty and stenting. The procedures, risks, and complication were discussed with the patient who is in full understanding and agreement. PROCEDURE: A 6-Icelandic FR4 guiding catheter introduced in the system after cannulating the right coronary ostium. A 0.014 balanced medium weight J-wire was advanced across the lesion, positioned distally, then a 2.5 x 12 mm Trek balloon was advanced and one inflation at 10 atmospheres was done. Following that, the balloon was removed and a 3.25 x 15 mm Xience Iliana stent was deployed, postdilated at 16 atmospheres. Following that, the balloon was removed and a 3.5 x 12 mm NC Trek balloon was advanced and one inflation at 14 atmospheres was done. After the last inflation, after appropriate wait, the balloon and the guidewire were withdrawn back in the guiding catheter. Images were obtained and repeated. Those images reveal stable successful stenting. At that point, the guiding catheter, the balloon and the guidewire were removed. The left ventricular end- diastolic pressure was calculated. Following that, catheter and sheath were removed. Hemostasis was obtained with deployment of a TR band. There was no immediate complication. Patient is returned to her room in stable condition. Of note, the patient had mild EKG changes with the inflation that resulted in the procedure. She had no chest discomfort. RESULTS: Successful stenting of the proximal mid segment of the right coronary artery with reduction of stenosis from 70% to 0%. RECOMMENDATION: Patient to be continued on aspirin, Plavix and her anticoagulation. Her aspirin will be stopped in 4 weeks. Those findings and recommendation were discussed with the patient and her family who are in full understanding and agreement. Duration of procedure is 39 minutes. MMODL / IJN: [id number] /
--- NOTE | 2019-11-12 09:53 | LTR ---
DATE OF SERVICE: 11/12/2019 RE: Dawna Colbert Dear Dr. Olmos; I had the pleasure to perform cardiac catheterization and coronary angioplasty and stenting on Mrs. Colbert at [facility] on November 12, 2019 and a full copy of the procedure note will be forwarded to you. In brief, she was found to have significant disease involving a calcified segment in the right coronary artery, underwent successful stenting of that vessel. At this time, I will recommend to continue dual antiplatelet treatment in addition to her anticoagulation for 4 weeks. Subsequently, her aspirin will be stopped and she will be continued on Plavix and anticoagulation. I will keep you updated on her progress and thank you again for allowing me to participate in this patient's care. Please feel free to call for any questions. Sincerely yours, MD ALANA Christie / RUDY: [id number] /
[2019-11-12 10:10] VITALS: RESP 16
[2019-11-12] MEDS ORDERED: amLODIPine 5 MG TAB PO STA (12:08)
[2019-11-12] MEDS ORDERED: IBUPROFEN 600 MG TAB PO STA (12:14)
[2019-11-12 13:07] VITALS: PULSE 68
[2019-11-12 13:12] VITALS: BP 180/80
[2019-11-12] MEDS ORDERED: LISINOPRIL 5 MG TAB PO SCH (21:00)
[2019-11-13] MEDS ORDERED: CLOPIDOGREL 75 MG TAB PO SCH (09:00)
[2019-11-13] MEDS ORDERED: ASPIRIN 81 MG PO SCH (09:00)
== END 2019-11-12 15:05 | disposition home or self-care (01) ==
LOC: CATHCVL 06:40
PROVIDERS: ATTEND Internal Medicine Interventional Cardiology
DX: I25.10 Atherosclerotic heart disease of native coronary artery without angina pectoris (principal); I25.84 Coronary atherosclerosis due to calcified coronary lesion; I77.1 Stricture of artery; I48.91 Unspecified atrial fibrillation; I42.9 Cardiomyopathy, unspecified; R94.39 Abnormal result of other cardiovascular function study; I10 Essential (primary) hypertension; Z79.01 Long term (current) use of anticoagulants; Z79.899 Other long term (current) drug therapy; Z88.5 Allergy status to narcotic agent; Z88.7 Allergy status to serum and vaccine; Z98.51 Tubal ligation status; Z87.891 Personal history of nicotine dependence; Z82.49 Family history of ischemic heart disease and other diseases of the circulatory system
CPT/HCPCS: 93458; C9600; C1769 ×2; C1887; C1725 ×2; C1874; C1894; J2250; J2001; J3010; J0583; Q9967 ×2

== ENCOUNTER → 2020-02-22 | Outpatient (CLI) | payer MEDICARE, OTHER ==
[2020-02-23 00:50] LABS: African American GFR (CKD) 103.9 (60.0-200.0); Albumin 4.1 g/dL (3.80-4.90); Albumin/Globulin Ratio 1.86 (1.60-3.17); Anion Gap 9.8 mmol/L (4.00-12.00); BUN/Creat Ratio 22.86 Ratio (12.00-20.00); Calcium 8.5 mg/dL (8.7-10.3); Carbon Dioxide 20.2 mmol/L (21.6-31.8); Chol/HDL Ratio 2.95; Globulin 2.2 g/dL (1.6-3.3); LDL Cholesterol,Calculated 66.8 mg/dL (0.0-131.0); Non-African American GFR(CKD) 89.7 (60.0-200.0); Potassium 3.7 mmol/L (3.5-5.5); Total Bilirubin 0.2 mg/dL (0.2-1.2); Total Protein 6.3 g/dL (6.2-8.2); VLDL Calculation 17.2 mg/dL (5.00-40.00)
== END | disposition home or self-care (01) ==
LOC: LABWHC1 12:09
PROVIDERS: ATTEND Internal Medicine Interventional Cardiology
DX: E78.2 Mixed hyperlipidemia (principal); I48.0 Paroxysmal atrial fibrillation
CPT/HCPCS: 36415; 80053; 80061; 84443

== ENCOUNTER → 2020-04-24 | Outpatient (CLI) | payer MEDICARE, OTHER | END | disposition home or self-care (01) | LOC: LABWHC1 11:54 | PROVIDERS: ATTEND Family Medicine | DX: Z20.828 Contact with and (suspected) exposure to other viral communicable diseases (principal) | CPT/HCPCS: U0003; C9803 ==

== ENCOUNTER → 2020-08-10 | Outpatient (CLI) | payer MEDICARE, OTHER ==
[2020-08-10 10:12] LABS: African American GFR (CKD) >90 (>60 ml/min/1.73 sqM); Blood Urea Nitrogen 18 mg/dL (7-17); Non-African American GFR(CKD) >90 (>60 ml/min/1.73 sqM)
--- NOTE | 2020-08-10 11:47 | CT ---
EXAMINATION TYPE: CT angio neck DATE OF EXAM: 08/10/2020 COMPARISON: None HISTORY: stenosis CT DLP: 300 mGycm CONTRAST: CTA cervical carotids is performed and with IV Contrast, patient injected with 65 mL of Isovue 370. Contrast CTA of the cervical carotids was performed 3-D reconstruction imaging obtained at a separate workstation. Right carotid system: Mild plaque is seen of the right common carotid artery. There is moderate calc ified plaque also noted at the carotid bulb and proximal right ICA. Estimated diameter reduction is greater than 85%. ECA is patent. Right vertebral artery appears unremarkable. Left carotid system: Mild plaque is seen of the left common carotid artery. There is severe soft betzy que also noted at the proximal left ICA with occlusion noted of 1 cm and subsequent recanalization. ECA is patent. Left vertebral artery appears unremarkable. IMPRESSION: 1. Occlusion and subsequent recanalization left ICA. 2. High-grade stenosis right ICA
== END | disposition home or self-care (01) ==
LOC: RADCTMAIN 09:22
PROVIDERS: ATTEND Nurse Practitioner Adult Health
DX: I65.23 Occlusion and stenosis of bilateral carotid arteries (principal); I65.22 Occlusion and stenosis of left carotid artery; Z88.5 Allergy status to narcotic agent; Z88.7 Allergy status to serum and vaccine
CPT/HCPCS: 82565; 84520; 70498; 36415; Q9967

== ENCOUNTER → 2020-08-24 | Outpatient (CLI) | payer MEDICARE, OTHER ==
[2020-08-24 15:54] LABS: Anisocytosis Slight; Basophils # (A) 0.1 k/uL (0-0.2); Basophils % (A) 1 %; Eosinophils # (A) 0.2 k/uL (0-0.7); Eosinophils % (A) 2 %; HCT 27.3 % (34.0-46.0); HGB 7.9 gm/dL (11.4-16.0); Hypochromasia Marked; Lymphocytes # (A) 1.1 k/uL (1.0-4.8); Lymphocytes % (A) 11 %; MCH 21.8 pg (25.0-35.0); MCHC 29.1 g/dL (31.0-37.0); MCV 74.9 fL (80.0-100.0); Mean Platelet Volume 7.5; Microcytosis Moderate; Monocytes # (A) 0.6 k/uL (0-1.0); Monocytes % (A) 5 %; Neutrophils # (A) 8.1 k/uL (1.3-7.7); Neutrophils % (A) 80 %; Platelet Count 434 k/uL (150-450); RBC 3.65 m/uL (3.80-5.40); RDW 17.4 % (11.5-15.5); WBC 10.1 k/uL (3.8-10.6)
[2020-08-24 16:09] LABS: African American GFR (CKD) >90 (>60 ml/min/1.73 sqM); Anion Gap 10 mmol/L; Blood Urea Nitrogen 17 mg/dL (7-17); Carbon Dioxide 23 mmol/L (22-30); Chloride 107 mmol/L (98-107); Non-African American GFR(CKD) >90 (>60 ml/min/1.73 sqM); Potassium 4.1 mmol/L (3.5-5.1); Sodium 140 mmol/L (137-145)
== END | disposition home or self-care (01) ==
LOC: LABPAT 14:59
PROVIDERS: ATTEND Surgery
DX: Z01.812 Encounter for preprocedural laboratory examination (principal); I65.23 Occlusion and stenosis of bilateral carotid arteries
CPT/HCPCS: 80051; 82565; 84520; 85025

== ENCOUNTER → 2020-08-28 | Outpatient (CLI) | payer MEDICARE, OTHER ==
[2020-08-28 16:46] LABS: African American GFR (CKD) 108.5 (60.0-200.0); Albumin 4.7 g/dL (3.80-4.90); Albumin/Globulin Ratio 1.88 (1.60-3.17); Anion Gap 6.7 mmol/L (4.00-12.00); Calcium 9.5 mg/dL (8.7-10.3); Carbon Dioxide 24.3 mmol/L (21.6-31.8); Chol/HDL Ratio 2.82; Globulin 2.5 g/dL (1.6-3.3); Non-African American GFR(CKD) 93.7 (60.0-200.0); Potassium 4.1 mmol/L (3.5-5.5); Total Bilirubin 0.3 mg/dL (0.3-1.2); Total Protein 7.2 g/dL (6.2-8.2)
== END | disposition home or self-care (01) ==
LOC: LABWHC1 10:13
PROVIDERS: ATTEND Nurse Practitioner Adult Health
DX: E78.2 Mixed hyperlipidemia (principal); I10 Essential (primary) hypertension; I48.91 Unspecified atrial fibrillation
CPT/HCPCS: 36415; 80053; 80061; 84443

== ENCOUNTER → 2020-08-28 | Outpatient (CLI) | payer MEDICARE, OTHER | END | disposition home or self-care (01) | LOC: LABPAT 10:09 | PROVIDERS: ATTEND Surgery | DX: Z01.818 Encounter for other preprocedural examination (principal); I65.22 Occlusion and stenosis of left carotid artery | CPT/HCPCS: 36415; 86850; 86900; 86901 ==

== ENCOUNTER 2020-09-01 06:47 | Day surgery (SDC) | payer MEDICARE, OTHER ==
[2020-08-31 10:17] VITALS: BMI 21.7
[2020-09-01 07:23] VITALS: RESP 16; TEMP 97.7
[2020-09-01] MEDS ORDERED: LACTATED RINGERS 1,000 ML IV ONE (07:26)
[2020-09-01] MEDS ORDERED: LIDOCAINE 1% INJ 10MG/ML (20 ML MDV) ONE (07:37)
[2020-09-01] MEDS ORDERED: PROPOFOL 10 MG/ML 20 ML VIAL IV ONE (07:37)
--- NOTE | 2020-09-01 08:11 | P.PCN ---
Date of Procedure: 09/01/20 Procedure(s) Performed: Brief history: Patient is a pleasant 18-year-old white female scheduled for an elective upper endoscopy as well as colonoscopy as a part of evaluation of severe symptomatically anemia and hemoglobin of 7 g/dL. She is on a Eliquis and Plavix which is currently on hold. Procedure performed: Esophagogastroduodenoscopy with biopsy and cautery Colonoscopy with snare polypectomy Preoperative diagnosis: Iron deficiency anemia Anesthesia: MAC Procedure: After informed consent was obtained from the patient was brought into the endoscopy unit and IV sedation was administered by anesthesia under continuous monitoring. Initially upper endoscopy was done. The Olympus GF 160 video endoscope was inserted inserted into the mouth and esophagus intubated without any difficulty and was gradually advanced into the stomach and duodenum and carefully examined. The bulb t of the duodenum appeared normal. The second part of the duodenum there was a 5 mm nonbleeding arteriovenous malformation identified which was cauterized using a cold probe. Also biopsies were done from the duodenum to rule out celiac disease. The scope was then withdrawn into the stomach adequately insufflated with air and upon careful examination the antrum and body, cardia and fundus appeared normal. The scope was then withdrawn into the esophagus. The GE junction was located at 37 cm to the incisors. Moderate size hiatal hernia noted. It appeared regular with no erythema erosions or ulcerations. Rest of the esophagus appeared normal. Patient tolerated the procedure well. At this time the patient continued to remain sedation. Initial digital rectal examination was normal. Olympus CF 160 video colonoscope was then inserted into the rectum and gradually advanced to the cecum without any difficulty. Careful examination was performed as the scope was gradually being withdrawn. The prep was excellent. In the cecum there was a 5 mm polyp removed by snare polypectomy. In the transverse colon there was another 5 mm sessile polyp removed by snare polypectomy. Rest of the cecum, ascending colon, transverse colon, descending colon, sigmoid colon and rectum appeared normal. In the distal rectum there were 2 polyps measuring 1 cm to 1.5 cm broad-based mid by snare polypectomy. Scattered left sided diverticulosis seen. Retroflexion was performed in the rectum and no lesions were noted. Patient tolerated the procedure well. Impression: 1. Upper endoscopy revealed a 5 limited nonbleeding angioma dysplasia and the second part of the duodenum status post cautery and moderate size hiatal hernia 2. Colonoscopy revealed: a) 5 mm cecal polyp status post snare polypectomy b) 5 millimeters as his colon polyp serous posterior polypectomy c) 1 cm and 1.5 cm broad-based rectal polyp serous posterior polypectomy d) scattered sigmoid diverticulosis Recommendations: Findings of this examination were discussed with the patient as well as a family. She was advised to follow with the biopsy results. If the biopsies revealed adenoma she can have a repeat colonoscopy in 3 years. She was advised to start iron supplements daily and resume Plavix and Eliquis tomorrow.
[2020-09-01 08:30] VITALS: BP 130/65; PULSE 59
--- NOTE | 2020-09-05 20:05 | CDI ---
Date: 09.06.20 CDS/Battery Tester Name: Amber Stevens Phone: If any questions, call Nilda Fu Car Rental Deliverer at [phone] Patient Name: Dawna Colbert Admit Date 09.01.20 Discharge Date: 09.01.20 ATTENTION: The [facility] Coding Staff appreciate your assistance in clarifying documentation. Please respond to the clarification below the line at the bottom and electronically sign. The [facility] Coding staff will review the response and follow-up if needed. Please note: Queries are made part of the Legal Health Record. If you have any questions, please contact the Car Rental Deliverer. Dear Dr. Gates In order to code to the greatest specificity and for the greatest reimbursement I need the following information: In your Op note in the section of EGD you have documented 5 mm nonbleeding Arteriovenous malformation then in the impression you have documented nonbleeding angioma. Please clarify which was found. Thank you for your kind consideration. MTDD
--- NOTE | 2020-09-07 11:04 | CDI ---
Date: 09.06.20 CDS/Vegetable Harvest Machine Operator Name: Amber Stevens Phone: If any questions, call Nilda Fu Bat Lathe Operator at [phone] Patient Name: Dawna Colbert Admit Date 09.01.20 Discharge Date: 09.01.20 ATTENTION: The [facility] Coding Staff appreciate your assistance in clarifying documentation. Please respond to the clarification below the line at the bottom and electronically sign. The [facility] Coding staff will review the response and follow-up if needed. Please note: Queries are made part of the Legal Health Record. If you have any questions, please contact the Bat Lathe Operator. Dear Dr. Gates In order to code to the greatest specificity and for the greatest reimbursement I need the following information: In your Op note in the section of EGD you have documented 5 mm nonbleeding Arteriovenous malformation then in the impression you have documented nonbleeding angioma. Please clarify which was found. Thank you for your kind consideration. MTDD
== END 2020-09-01 08:58 | disposition home or self-care (01) ==
LOC: ORWHC2ENDO 06:47
PROVIDERS: ATTEND Internal Medicine Gastroenterology
DX: D12.0 Benign neoplasm of cecum (principal); K51.40 Inflammatory polyps of colon without complications; D12.8 Benign neoplasm of rectum; Q27.33 Arteriovenous malformation of digestive system vessel; D18.03 Hemangioma of intra-abdominal structures; K44.9 Diaphragmatic hernia without obstruction or gangrene; D50.9 Iron deficiency anemia, unspecified; I25.10 Atherosclerotic heart disease of native coronary artery without angina pectoris; I48.91 Unspecified atrial fibrillation; I10 Essential (primary) hypertension; E78.5 Hyperlipidemia, unspecified; K21.9 Gastro-esophageal reflux disease without esophagitis; Z79.01 Long term (current) use of anticoagulants; Z79.02 Long term (current) use of antithrombotics/antiplatelets; Z79.899 Other long term (current) drug therapy; Z91.09 Other allergy status, other than to drugs and biological substances; Z88.7 Allergy status to serum and vaccine; Z88.5 Allergy status to narcotic agent; Z88.8 Allergy status to other drugs, medicaments and biological substances; Z95.5 Presence of coronary angioplasty implant and graft; Z98.51 Tubal ligation status
CPT/HCPCS: 88305; 45385; 43239; 43270; J2001; J2704

== ENCOUNTER → 2020-09-28 | Outpatient (CLI) | payer MEDICARE, OTHER ==
[2020-09-28 15:51] LABS: HCT 37.1 % (37.2-46.3); HGB 10.4 g/dL (12.0-15.0); MCH 24.8 pg (27.0-32.0); MCV 88.5 fL (80.0-97.0); Mean Platelet Volume 10.7 fL (9.5-12.2); Platelet Count 303 X 10*3/uL (140-440); RBC 4.19 X 10*6/uL (4.10-5.20); RDW 27.1 % (11.5-14.5); WBC 7.53 X 10*3/uL (4.50-10.00)
[2020-09-28 16:30] LABS: Anisocytosis (M) 3+; Basophils # (A) 0.05 X 10*3/uL (0.00-0.10); Basophils % (A) 0.7 %; Eosinophils % (A) 2.7 %; Lymphocytes # (A) 0.88 X 10*3/uL (0.90-5.00); Lymphocytes % (A) 11.7 %; Monocytes # (A) 0.57 X 10*3/uL (0.20-1.00); Monocytes % (A) 7.6 %; Neutrophils # (A) 5.81 X 10*3/uL (1.80-7.70)
== END | disposition home or self-care (01) ==
LOC: LABWHC1 09:24
PROVIDERS: ATTEND Nurse Practitioner Adult Health
DX: D64.9 Anemia, unspecified (principal)
CPT/HCPCS: 36415; 85025

== ENCOUNTER → 2020-11-01 | Outpatient (CLI) | payer MEDICARE, OTHER ==
[2020-11-01 13:36] LABS: Anisocytosis Moderate; Basophils # (A) 0.1 k/uL (0-0.2); Basophils % (A) 1 %; Eosinophils # (A) 0.2 k/uL (0-0.7); Eosinophils % (A) 3 %; HCT 37.9 % (34.0-46.0); HGB 11.9 gm/dL (11.4-16.0); Hypochromasia Slight; Lymphocytes # (A) 1.1 k/uL (1.0-4.8); Lymphocytes % (A) 14 %; MCH 27.3 pg (25.0-35.0); MCHC 31.2 g/dL (31.0-37.0); MCV 87.4 fL (80.0-100.0); Mean Platelet Volume 7.5; Microcytosis Slight; Monocytes # (A) 0.5 k/uL (0-1.0); Monocytes % (A) 6 %; Neutrophils # (A) 6.1 k/uL (1.3-7.7); Neutrophils % (A) 76 %; Platelet Count 224 k/uL (150-450); RBC 4.34 m/uL (3.80-5.40); RDW 21.4 % (11.5-15.5); WBC 8.1 k/uL (3.8-10.6)
[2020-11-01 13:46] LABS: African American GFR (CKD) >90 (>60 ml/min/1.73 sqM); Anion Gap 10 mmol/L; Blood Urea Nitrogen 15 mg/dL (7-17); Carbon Dioxide 27 mmol/L (22-30); Chloride 105 mmol/L (98-107); Non-African American GFR(CKD) >90 (>60 ml/min/1.73 sqM); Potassium 4.5 mmol/L (3.5-5.1); Sodium 142 mmol/L (137-145)
== END | disposition home or self-care (01) ==
LOC: LABPAT 12:21
PROVIDERS: ATTEND Surgery
DX: Z01.812 Encounter for preprocedural laboratory examination (principal); I65.29 Occlusion and stenosis of unspecified carotid artery
CPT/HCPCS: 36415; 80051; 82565; 84520; 85025; 86850; 86900; 86901

== ENCOUNTER 2020-11-02 13:00 | Inpatient (IN) | payer MEDICARE, OTHER ==
[2020-11-03 10:06] VITALS: BMI 21.6
[2020-11-09] MEDS ORDERED: NITROGLYCERIN-D5W PMX 50 MG in DEXTROSE/WATER 1 250ML.BAG IV SCH (05:50)
[2020-11-09] MEDS ORDERED: HYDROmorphone 0.5 MG/0.5 ML SYRINGE IVP PRN (05:50)
[2020-11-09] MEDS ORDERED: MIDAZOLAM 2 MG/2 ML VIAL IV PRN (05:50)
[2020-11-09] MEDS ORDERED: LIDOCAINE 1% (10MG/ML) FOR IV START INTRADERMA PRN (05:50)
[2020-11-09] MEDS ORDERED: DEXAMETHASONE SOD PHOSPHATE 4 MG/ML 1 ML VIAL IV ONE (05:50)
[2020-11-09] MEDS ORDERED: ONDANSETRON 4 MG/2 ML VIAL IVP ONE (05:50)
[2020-11-09] MEDS: LACTATED RINGERS 1,000 ML IV SCH ×2 (08:52→12:45)
[2020-11-09] MEDS ORDERED: SUCCINYLCHOLINE CHLORIDE 100 MG/5 ML SYR IV ONE (09:29)
[2020-11-09] MEDS ORDERED: PROPOFOL 10 MG/ML 20 ML VIAL IV ONE (09:29)
[2020-11-09] MEDS ORDERED: MIDAZOLAM 2 MG/2 ML VIAL ONE (09:29)
[2020-11-09] MEDS ORDERED: fentaNYL (PF) 50 MCG/ML 2 ML AMP ONE (09:29)
[2020-11-09] MEDS ORDERED: ROCURONIUM 10 MG/ML (5 ML VIAL) IV ONE (09:29)
[2020-11-09] MEDS ORDERED: ePHEDrine SULFATE/0.9% NACL/PF 50 MG/5 ML SYRINGE IV ONE (09:29)
[2020-11-09] MEDS ORDERED: PHENYLEPHRINE-0.9% NACL SYG 1,000 MCG/10 ML SYRINGE ONE (09:29)
[2020-11-09] MEDS ORDERED: PROTAMINE SULFATE 10 MG/ML 5 ML VIAL IV ONE (09:29)
[2020-11-09] MEDS ORDERED: NITROGLYCERIN-D5W PMX 50 MG/250 ML BOTTLE IV ONE (09:29)
[2020-11-09] MEDS ORDERED: LIDOCAINE 1% INJ 10MG/ML (20 ML MDV) ONE (09:29)
[2020-11-09] MEDS ORDERED: HEPARIN SODIUM,PORCINE 10,000 UNIT/ML 1 ML VIAL ONE (09:29)
[2020-11-09] MEDS ORDERED: LIDOCAINE 1% INJ 10MG/ML (20 ML MDV) SQ ONE (10:17)
[2020-11-09] MEDS ORDERED: HEPARIN SODIUM IV ONE ×2 (10:18)
[2020-11-09] MEDS ORDERED: SODIUM CHLORIDE IV ONE ×2 (10:18)
[2020-11-09] MEDS ORDERED: HEPARIN SODIUM 1,000 UN/ML (10ML VL) ONE (10:18)
[2020-11-09] MEDS ORDERED: SODIUM CHLORIDE 0.9% 1,000 ML BAG ONE (10:18)
[2020-11-09] MEDS ORDERED: ceFAZolin 2,000 MG in SODIUM CHLORIDE 0.9% 500 ML IRRIGATION ONE (10:19)
[2020-11-09] MEDS ORDERED: MAG HYDROX/AL HYDROX/SIMETH 30 ML CUP PO PRN (11:24)
[2020-11-09] MEDS ORDERED: BENZOCAINE/MENTHOL LOZENG 1 EACH LOZENGE MUCOUS MEM PRN (11:24)
[2020-11-09] MEDS ORDERED: ACETAMINOPHEN TAB 325 MG TAB PO PRN (11:24)
[2020-11-09] MEDS ORDERED: TRIMETHOBENZAMIDE 100 MG/ML 2 ML VIAL IM PRN (11:24)
--- NOTE | 2020-11-09 11:43 | P.OP ---
Date of Procedure: 11/09/20 Preoperative Diagnosis: Hemodynamically severe left ICA stenosis. Postoperative Diagnosis: Same. Procedure(s) Performed: Left carotid endarterectomy with patch angioplasty. Anesthesia: CRUZITO Surgeon: Reji Grace Estimated Blood Loss (ml): 70 IV fluids (ml): 500 Urine output (ml): 550 Pathology: other (Carotid plaque) Condition: stable Disposition: PACU (With eventual transfer to ICU per protocol.) Indications for Procedure: Patient is a 70-year-old female who presents today for elective left carotid endarterectomy. She was found on routine screening to have greater than 80% left ICA stenosis. She received medical clearance/risk stratification for the procedure. The procedure, risk and benefits were discussed with the patient and alternatively carotid stenting was discussed with the patient. It was felt the patient would be best served by carotid endarterectomy. The procedure, risk and benefits were discussed and patient wished to proceed with the carotid endarterectomy. Description of Procedure: Patient brought the upper and placed in supine position, and administered general endotracheal anesthesia delivered by the department anesthesiology. Lawrence catheter was placed to gravity drainage. The patient received 2 g of Ancef intravenously in the perioperative phase for prophylactic therapy. Patient's left neck supraclavicular and anterior chest wall areas were sterilely prepped and draped in usual manner. Skin incision was made along the anterior border sternocleidomastoid muscle and carried down through subcutaneous tissues. Hemostasis was achieved using electrocautery. The platysma muscle was divided. The dissection was then carried along the anterior border sternocleidomastoid muscle which was retracted posteriorly. The facial vein was identified and ligated with silk suture and divided between the sutures. Carotid sheath was identified and the proximal portion of the common carotid artery was dissected free of investing tissues and encircled Vesseloops. The vagus nerve was identified and left undisturbed. The dissection was carried to the level of carotid bifurcation. The superior thyroid and external carotid arteries were identified and encircled Vesseloops. The dissection was then carried cephalad along the internal carotid artery to a level past the plaque formation. The hypoglossal nerve was identified and left undisturbed. The internal carotid artery was encircled with vessel loop. Patient was systemically heparinized with 6000 units of heparin and after adequate circulation time the Vesseloops surrounding these. Thyroid, external carotid and internal carotid and finally the common carotid artery drawn closed. Arteriotomy was made in the common and extended through the bulb into the internal carotid. Stump pressures were obtained. Mean pressure was 31 mmHg and was felt that the patient would benefit from a carotid shunt. As such a shunt was placed in the internal carotid artery back bled and then placed in the com mon carotid artery thus restoring flow into the internal system. Endarterectomy was started at the common level and extended proximally to the bulb level where a retraction endarterectomy was performed on the superior thyroid and external carotid segments. The endarterectomy was then continued into the internal carotid where the distal plaque feathered off well. The specimen was sent to pathology. The luminal surface was inspected and evaluated for any loose or free-floating material. This was removed. Patch angioplasty closure with bovine pericardial patch was performed in conjunction with 6-0 Prolene suture placed in running fashion. Just prior to completion of the anastomotic line the shunt was removed. Backbleeding through the internal carotid artery was allowed to occur. The internal was then occluded at its origin and the common carotid artery was flushed. The artery was then flushed with heparinized saline solution and the anastomotic line closure completed. Just prior to completion anastomotic line the internal common as well as the superior thyroid and external carotid arteries were flushed thus flushing any air out of the arterial system. The internal carotid artery was backbled and occluded at its origin. The Vesseloops surrounding the superior thyroid and external carotid arteries were loosened and flow finally the Vesseloops around the common was loosened thus flushing a potential debris into the external system. Flow was then restored into the internal system. One point of bleeding along the anastomotic line was identified and this was controlled with 6-0 Prolene suture. Excellent pulse was identified in the internal distal to the endarterectomy plane. The patient received 25 mg of protamine. The wound was irrigated. No hemostatic agent was placed in the wound. Hemostasis was judged be adequate. Deep tissues were closed with 3-0 Vicryl and dermis was closed with 4-0 Monocryl placed in running intradermal fashion. Skin glue and appropriate dressings were applied. Patient tolerated procedure well awoke without apparent neurologic deficit. She was transferred to the recovery area in satisfactory and stable condition.
[2020-11-09] MEDS ORDERED: hydrALAZINE HCL 20 MG/ML 1 ML VIAL IVP ONE (11:52)
[2020-11-09 12:58] LABS: Glucose,Whole Blood 148 mg/dL (75-99)
[2020-11-09] MEDS: PHENYLEPHRINE 40 MG in SODIUM CHLORIDE 0.9% 250 ML IV SCH (13:17)
[2020-11-09] MEDS: ENOXAPARIN 40 MG/0.4 ML SYRINGE SQ SCH (13:18)
[2020-11-09] MEDS ORDERED: LORATADINE 10 MG TAB PO PRN (14:41)
--- NOTE | 2020-11-09 15:13 | P.CNPUL ---
History of Present Illness Consult date: 11/09/20 Requesting physician: eRji Grace Reason for consult: other Chief complaint: ICU management, status post carotid endarterectomy. History of present illness: Pulmonary consultation dated 11/09/2020. 70-year-old female, who is referred to vascular surgery because of left carotid artery stenosis. The patient underwent a left carotid endarterectomy today, with patch angioplasty. The surgery was done by . The surgery went well, according to the surgeon, the patient back in the ICU for monitoring. His her blood pressure is been a bit high, and she was initially some IV ni troglycerin, which was turned off by the ICU nurse. I did ask ICU nurses start the patient back on her regular blood pressure medications. She is resting comfortably. She's getting some saline at 80 mL an hour. She's not on any supplemental oxygen. She sitting next to a friend. The patient denies any issues. The patient's medical history includes atrial fibrillation, hyperlipidemia, hypertension, and previous tobacco use. No labs are able to be reviewed. Review of Systems REVIEW OF SYSTEMS: CONSTITUTIONAL: [Negative.] NEUROLOGIC: [ Negative.] HEENT: [ Negative.] CARDIAC: [Negative.] PULMONARY: [Negative.] GI: [Negative.] : [Negative.] RHEUMATOLOGIC: [ Negative.] IMMUNOLOGIC: [ Negative.] ENDOCRINE: [Negative. ] DERMATOLOGIC: [Negative.] Past Medical History Past Medical History: Atrial Fibrillation, Coronary Artery Disease (CAD), Hyperlipidemia, Hypertension, Osteoarthritis (OA) Additional Past Medical History / Comment(s): HGB 7.9 on 08/24/20, awaiting carotid endarectomy History of Any Multi-Drug Resistant Organisms: ESBL Date of last positivie culture/infection: 08/24/19 MDRO Source:: ESBL URINE Past Surgical History: Heart Catheterization With Stent, Orthopedic Surgery, Tubal Ligation Additional Past Surgical History / Comment(s): TENDON TRANSPLANT rt knee, Past Anesthesia/Blood Transfusion Reactions: No Reported Reaction Additional Past Anesthesia/Blood Transfusion Reaction / Comment(s): . Date of Last Stent Placement:: 10/2019 Smoking Status: Former smoker - Past Family History Mother Family Medical History: Congestive Heart Failure (CHF), Diabetes Mellitus Father Additional Family Medical History / Comment(s): DRINKER Brother(s) Family Medical History: Cancer Medications and Allergies Home Medications Medication Instructions Recorded Confirmed Type Apixaban [Eliquis] 5 mg PO BID #60 tab 08/26/19 11/03/20 Rx Nitroglycerin Sl Tabs [Nitrostat] 0.4 mg SUBLINGUAL Q5M PRN #50 tab 08/26/19 11/03/20 Rx Amiodarone [Cordarone] 100 mg PO QAM 11/09/19 11/03/20 History Metoprolol Tartrate [Lopressor] 50 mg PO BID 11/09/19 11/03/20 History Atorvastatin [Lipitor] 40 mg PO HS #90 tablet 11/12/19 11/03/20 Rx Losartan Potassium 50 mg PO HS 08/29/20 11/03/20 History Clopidogrel [Plavix] 75 mg PO HS 11/03/20 11/03/20 History Allergies Allergy/AdvReac Type Severity Reaction Status Date / Time adhesive tape Allergy Rash/Hives Verified 11/09/20 08:03 tetanus toxoid, adsorbed Allergy Swelling Verified 11/09/20 08:03 codeine AdvReac Abdominal Verified 11/09/20 08:03 Pain pseudoephedrine HCl AdvReac Hallucinati Verified 11/09/20 08:03 [From [facility]] ons Physical Exam Osteopathic Statement: *. No significant issues noted on an osteopathic structural exam other than those noted in the History and Physical/Consult. Vitals: Vital Signs Temp Pulse Pulse Resp BP BP BP 11/09/20 14:15 69 16 141/60 11/09/20 14:00 73 10 L 11/09/20 13:45 74 12 11/09/20 13:30 77 14 11/09/20 13:15 71 11 L 11/09/20 13:00 71 70 16 132/62 11/09/20 12:45 97.6 F 72 14 133/54 11/09/20 12:15 70 16 133/60 127/80 11/09/20 12:00 72 18 168/106 170/60 11/09/20 11:45 69 14 212/88 11/09/20 11:29 97.1 F L 66 16 11/09/20 07:48 97.5 F L 55 L 16 238/104 224/94 BP Pulse Ox 11/09/20 14:15 11/09/20 14:00 93 L 11/09/20 13:45 92 L 11/09/20 13:30 11/09/20 13:15 94 L 11/09/20 13:00 94 L 11/09/20 12:45 93 L 11/09/20 12:15 96 11/09/20 12:00 99 11/09/20 11:45 210/74 99 11/09/20 11:29 197/70 99 11/09/20 07:48 97 Intake and Output 11/09/20 11/09/20 11/09/20 06:59 14:59 22:59 Intake Total 912 Output Total 780 Balance 132 Intake: IV 912 Lactated Ringers 1,000 ml 160 @ 80 mls/hr IV .[id number] MANSI Rx#:[id number] Output: Urine 710 Estimated Blood Loss 70 Other: Voiding Method Indwelling Catheter Weight 63.6 kg ABP, PAP, CO, CI - Last 8 Hours Arterial Blood Pressure 133/54 Arterial Blood Pressure 135/51 Arterial Blood Pressure 131/51 Arterial Blood Pressure 142/52 Arterial Blood Pressure 120/45 Arterial Blood Pressure 119/43 Arterial Blood Pressure 113/41 No acute distress, oriented 3. Not on any supplemental oxygen. HEENT examination is grossly unremarkable. Neck supple. Full range of motion. No adenopathy thyromegaly or neck vein distention. A bandage is noted in the left neck area. Cardiovascular examination reveals regular rhythm rate. S1-S2 normal. No S3 or S4. No discernible murmur noted. Heart rate 75 bpm. Lungs reveal clear breath sounds. Breath sounds are equal bilaterally. No adventitious lung sounds including wheezes rhonchi or crackles. Abdomen soft bowel sounds are heard. No masses or tenderness. Extremities are intact. No cyanosis clubbing or edema. Skin is without rash or lesion. Neurologic examination is brief but nonfocal. Results - Laboratory Findings Abnormal lab findings: Abnormal Labs 11/09/20 12:58 POC Glucose (mg/dL) 148 H Assessment and Plan Assessment: Postop day #0, status post left carotid endarterectomy, with patch angioplasty, for severe left carotid artery stenosis. History of essential hypertension. History of hyperlipidemia. History of chronic atrial fibrillation. Prior history of tobacco use. Plan: Plan dated 11/09/2020. Currently, the patient's doing well. She's not requiring any supplemental oxygen. She's getting a basic IV at 80 mL an hour. I did ask her nurse to resume her normal blood pressure medications. Hopefully, we will need to use any IV medications while here in the intensive care unit. The patient was on IV nitroglycerin but that's been turned off. Additional recommendations and suggestions are forthcoming. Prognosis is good. Time with Patient: Greater than 30
[2020-11-09] MEDS ORDERED: NITROGLYCERIN SL TABS 0.4 MG TAB SUBLINGUAL PRN (15:17)
[2020-11-09] MEDS: MORPHINE SULFATE 2 MG/ML SYRINGE IVP PRN ×2 (16:24→20:48)
[2020-11-09] MEDS: LABETALOL 5 MG/ML VIAL MDV IVP PRN ×3 (18:52→22:35)
[2020-11-09] MEDS: METOPROLOL TARTRATE 50 MG TAB PO SCH (20:47)
[2020-11-09] MEDS ORDERED: LOSARTAN 50 MG TAB PO SCH (21:00)
[2020-11-09] MEDS ORDERED: ATORVASTATIN 40 MG TAB PO SCH (21:00)
[2020-11-10] MEDS: LABETALOL 5 MG/ML VIAL MDV IVP PRN ×3 (00:42→06:43)
[2020-11-10] MEDS: MORPHINE SULFATE 2 MG/ML SYRINGE IVP PRN ×2 (02:24→06:25)
[2020-11-10 03:22] VITALS: BP 176/83
[2020-11-10] MEDS: PHENYLEPHRINE 40 MG in SODIUM CHLORIDE 0.9% 250 ML IV SCH (05:30)
[2020-11-10 08:30] VITALS: TEMP 98.6
[2020-11-10] MEDS ORDERED: ASPIRIN 81 MG PO SCH (09:00)
[2020-11-10] MEDS ORDERED: AMIODARONE 100 MG TAB PO SCH (09:00)
[2020-11-10] MEDS: LACTATED RINGERS 1,000 ML IV SCH (09:09)
[2020-11-10 09:50] LABS: Anisocytosis Moderate; HCT 34.1 % (34.0-46.0); Hypochromasia Moderate; MCH 29.1 pg (25.0-35.0); MCHC 32.2 g/dL (31.0-37.0); MCV 90.2 fL (80.0-100.0); Mean Platelet Volume 7.6; Microcytosis Slight; Platelet Count 224 k/uL (150-450); RBC 3.78 m/uL (3.80-5.40); WBC 12.9 k/uL (3.8-10.6)
[2020-11-10 09:53] LABS: African American GFR (CKD) >90 (>60 ml/min/1.73 sqM); Anion Gap 8 mmol/L; Blood Urea Nitrogen 13 mg/dL (7-17); Calcium 9.5 mg/dL (8.4-10.2); Carbon Dioxide 26 mmol/L (22-30); Chloride 106 mmol/L (98-107); Glucose 126 mg/dL (74-99); Non-African American GFR(CKD) >90 (>60 ml/min/1.73 sqM); Potassium 4.1 mmol/L (3.5-5.1); Sodium 140 mmol/L (137-145)
[2020-11-10] MEDS: METOPROLOL TARTRATE 50 MG TAB PO SCH (09:53)
[2020-11-10] MEDS: ENOXAPARIN 40 MG/0.4 ML SYRINGE SQ SCH (09:53)
--- NOTE | 2020-11-10 10:22 | P.CRDCN ---
History of Present Illness Consult date: 11/10/20 History of present illness: HISTORY OF PRESENT ILLNESS: This is a 70-year-old female with a past medical history significant for coronary artery disease with previous stent placement to the RCA, paroxysmal atrial fibrillation, hyperlipidemia, hypertension, former nicotine dependence, and carotid stenosis. Patient follows in the office with Dr. Huerta. We have been asked to see the patient in consultation for cardiac management. Patient underwent left carotid endarterectomy yesterday with Dr. Grace. Patient examined this morning in the intensive care unit. Patient is sitting up in the chair. Patient denies chest pain or pressure. She denies shortness of breath. Denies any neurological symptoms. Vital signs are stable. Blood pressure is running with a systolic in the 150s. She is not on any vasopressor support. Telemetry reveals sinus mechanism Laboratory data: WBC 12.9. Hemoglobin 11.0. Platelet count 224. Sodium 140. Potassium 4.1. BUN 13. Creatinine 0.54. Current home cardiac medications include metoprolol tartrate 50 mg twice a day, losartan 50 mg daily, Plavix 75 mg daily, Lipitor 40 mg daily, Eliquis 5 mg t wice a day, and amiodarone 100 mg daily. Most recent echocardiogram obtained in August 2019 reveal ejection fraction 50- 55%, mild mitral regurgitation, and mild tricuspid regurgitation Cardiac catheterization history: October 2019 revealing mild disease of the LAD and circumflex. Patient underwent PCI to the right coronary artery. REVIEW OF SYSTEMS: At the time of my exam: CONSTITUTIONAL: Denies fever or chills. HEENT: Denies blurred vision, vision changes, or eye pain. Denies hemoptysis CARDIOVASCULAR: Denies chest pain. Denies orthopnea. Denies PND. Denies palp itations RESPIRATORY: Denies shortness of breath. GASTROINTESTINAL: Denies abdominal pain. Denies nausea or vomiting. HEMATOLOGIC: Denies bleeding disorders. GENITOURINARY: Denies any blood in urine. SKIN: Denies pruitis. Denies rash. PHYSICAL EXAM: VITAL SIGNS: Reviewed. GENERAL: Well-developed in no acute distress. HEENT: Head is normocephalic. Pupils are equal, round. Sclerae anicteric. Mucous membranes of the mouth are moist. Neck supple. No JVD or thyromegaly. Dressing to left side of neck noted. No carotid bruits. LUNGS: Respirations even and unlabored. Lungs essentially clear to auscultation bilaterally. HEART: Regular rate and rhythm. S1 and S2 heard. Short systolic murmur at the apex. ABDOMEN: Soft. Nondistended. Nontender. EXTREMITIES: Normal range of motion. No clubbing or cyanosis. Peripheral pulses intact. No lower extremity edema NEUROLOGIC: Awake and alert. Oriented x 3. ASSESSMENT: Left carotid artery stenosis, status post left carotid endarterectomy Coronary artery disease with previous PCI to RCA Paroxysmal atrial fibrillation, on anticoagulation with Eliquis Hypertension Hyperlipidemia Former nicotine dependence PLAN: Continue postoperative management per vascular surgery Continue home cardiac medications Resume Eliquis when okay with vascular surgery Patient stable for discharge from a cardiac standpoint Patient to follow up outpatient with Dr. Huerta. Nurse practitioner note has been reviewed by physician. Signing provider agrees with the documented findings, assessment, and plan of care. Past Medical History Past Medical History: Atrial Fibrillation, Coronary Artery Disease (CAD), Hyperlipidemia, Hypertension, Osteoarthritis (OA) Additional Past Medical History / Comment(s): HGB 7.9 on 08/24/20, awaiting carotid endarectomy History of Any Multi-Drug Resistant Organisms: ESBL Date of last positivie culture/infection: 08/24/19 MDRO Source:: ESBL URINE Past Surgical History: Heart Catheterization With Stent, Orthopedic Surgery, Tubal Ligation Additional Past Surgical History / Comment(s): TENDON TRANSPLANT rt knee, Past Anesthesia/Blood Transfusion Reactions: No Reported Reaction Additional Past Anesthesia/Blood Transfusion Reaction / Comment(s): . Date of Last Stent Placement:: 10/2019 Smoking Status: Former smoker - Past Family History Mother Family Medical History: Congestive Heart Failure (CHF), Diabetes Mellitus Father Additional Family Medical History / Comment(s): DRINKER Brother(s) Family Medical History: Cancer Medications and Allergies Home Medications Medication Instructions Recorded Confirmed Type Apixaban [Eliquis] 5 mg PO BID #60 tab 08/26/19 11/03/20 Rx Nitroglycerin Sl Tabs [Nitrostat] 0.4 mg SUBLINGUAL Q5M PRN #50 tab 08/26/19 11/03/20 Rx Amiodarone [Cordarone] 100 mg PO QAM 11/09/19 11/03/20 History Metoprolol Tartrate [Lopressor] 50 mg PO BID 11/09/19 11/03/20 History Atorvastatin [Lipitor] 40 mg PO HS #90 tablet 11/12/19 11/03/20 Rx Losartan Potassium 50 mg PO HS 08/29/20 11/03/20 History Clopidogrel [Plavix] 75 mg PO HS 11/03/20 11/03/20 History Allergies Allergy/AdvReac Type Severity Reaction Status Date / Time adhesive tape Allergy Rash/Hives Verified 11/09/20 08:03 tetanus toxoid, adsorbed Allergy Swelling Verified 11/09/20 08:03 codeine AdvReac Abdominal Verified 11/09/20 08:03 Pain pseudoephedrine HCl AdvReac Hallucinati Verified 11/09/20 08:03 [From [facility]] ons Physical Exam Vitals: Vital Signs Temp Pulse Pulse Resp BP BP BP 11/10/20 08:00 98.6 F 64 117 H 176/83 11/10/20 07:30 58 L 16 176/83 11/10/20 07:00 66 19 11/10/20 06:30 62 21 11/10/20 06:00 65 20 11/10/20 05:30 70 21 11/10/20 05:00 58 L 11 L 11/10/20 04:30 59 L 11 L 11/10/20 04:00 98.0 F 62 11 L 11/10/20 03:30 62 11 L 11/10/20 03:00 66 20 11/10/20 02:30 67 21 176/83 11/10/20 02:00 68 26 H 11/10/20 01:30 64 15 11/10/20 01:00 67 22 11/10/20 00:30 75 28 H 11/10/20 00:00 97.6 F 65 14 11/09/20 23:30 73 16 11/09/20 23:00 67 32 H 11/09/20 22:30 66 13 11/09/20 22:00 62 9 L 11/09/20 21:30 65 10 L 11/09/20 21:00 65 9 L 11/09/20 20:30 66 18 11/09/20 20:00 97.9 F 69 20 11/09/20 19:30 70 14 11/09/20 19:00 66 14 11/09/20 18:45 73 10 L 11/09/20 18:15 72 18 11/09/20 18:00 70 19 11/09/20 17:45 68 15 11/09/20 17:30 79 16 11/09/20 17:01 82 25 H 11/09/20 17:00 81 23 11/09/20 16:30 97.6 F 71 70 14 11/09/20 16:00 72 16 11/09/20 15:30 80 11 L 11/09/20 15:00 75 15 11/09/20 14:45 74 16 11/09/20 14:30 72 24 11/09/20 14:15 69 16 141/60 11/09/20 14:00 73 10 L 11/09/20 13:45 74 12 11/09/20 13:30 77 14 11/09/20 13:15 71 11 L 11/09/20 13:00 71 70 16 132/62 11/09/20 12:45 97.6 F 72 14 133/54 11/09/20 12:15 70 16 133/60 127/80 11/09/20 12:00 72 18 168/106 170/60 11/09/20 11:45 69 14 212/88 11/09/20 11:29 97.1 F L 66 16 BP Pulse Ox 11/10/20 08:00 94 L 11/10/20 07:30 94 L 11/10/20 07:00 94 L 11/10/20 06:30 95 11/10/20 06:00 95 11/10/20 05:30 95 11/10/20 05:00 98 11/10/20 04:30 98 11/10/20 04:00 99 11/10/20 03:30 90 L 11/10/20 03:00 96 11/10/20 02:30 95 11/10/20 02:00 95 11/10/20 01:30 97 11/10/20 01:00 95 11/10/20 00:30 95 11/10/20 00:00 97 11/09/20 23:30 96 11/09/20 23:00 96 11/09/20 22:30 97 11/09/20 22:00 96 11/09/20 21:30 96 11/09/20 21:00 97 11/09/20 20:30 94 L 11/09/20 20:00 95 11/09/20 19:30 96 11/09/20 19:00 94 L 11/09/20 18:45 96 11/09/20 18:15 96 11/09/20 18:00 97 11/09/20 17:45 97 11/09/20 17:30 90 L 11/09/20 17:01 94 L 11/09/20 17:00 92 L 11/09/20 16:30 94 L 11/09/20 16:00 95 11/09/20 15:30 95 11/09/20 15:00 95 11/09/20 14:45 92 L 11/09/20 14:30 92 L 11/09/20 14:15 11/09/20 14:00 93 L 11/09/20 13:45 92 L 11/09/20 13:30 11/09/20 13:15 94 L 11/09/20 13:00 94 L 11/09/20 12:45 93 L 11/09/20 12:15 96 11/09/20 12:00 99 11/09/20 11:45 210/74 99 11/09/20 11:29 197/70 99 Intake and Output 11/09/20 11/10/20 11/10/20 22:59 06:59 14:59 Intake Total 1130 1440 80 Output Total 755 1075 70 Balance 375 365 10 Intake: IV 640 720 80 Lactated Ringers 1,000 ml 640 720 80 @ 80 mls/hr IV .[id number] [facility] Rx#:[id number] Oral 490 720 Output: Urine 755 1075 70 Other: Voiding Method Indwelling Catheter Indwelling Catheter Weight 65 kg ABP, PAP, CO, CI - Last 8 Hours Arterial Blood Pressure 105/40 Arterial Blood Pressure 106/48 Arterial Blood Pressure 141/51 Arterial Blood Pressure 186/66 Arterial Blood Pressure 156/63 Arterial Blood Pressure 163/64 Arterial Blood Pressure 160/56 Arterial Blood Pressure 109/42 Arterial Blood Pressure 178/60 Arterial Blood Pressure 136/49 Arterial Blood Pressure 170/63 Arterial Blood Pressure 162/59 Results 11/10/20 09:25 11/10/20 09:25 CBC 11/10/20 Range/Units 09:25 WBC 12.9 H (3.8-10.6) k/uL RBC 3.78 L (3.80-5.40) m/uL Hgb 11.0 L (11.4-16.0) gm/dL Hct 34.1 (34.0-46.0) % Plt Count 224 (150-450) k/uL Comprehensive Metabolic Panel 11/10/20 Range/Units 09:25 Sodium 140 (137-145) mmol/L Potassium 4.1 (3.5-5.1) mmol/L Chloride 106 (98-107) mmol/L Carbon Dioxide 26 (22-30) mmol/L BUN 13 (7-17) mg/dL Creatinine 0.54 (0.52-1.04) mg/dL Glucose 126 H (74-99) mg/dL Calcium 9.5 (8.4-10.2) mg/dL Current Medications Generic Name Dose Route Start Last Admin Trade Name Freq PRN Reason Stop Dose Admin Acetaminophen 650 mg 11/09/20 11:24 11/09/20 13:16 Acetaminophen Tab 325 Mg Tab PO 650 mg Q4HR PRN Administration Pain Al Hydroxide/Mg Hydroxide 30 ml 11/09/20 11:24 Mag Hydrox/Al Hydrox/Simeth 30 Ml Cup PO Q6HR PRN Indigestion Amiodarone HCl 100 mg 11/10/20 09:00 11/10/20 09:53 Amiodarone 100 Mg Tab PO 100 mg QAM MANSI Administration Aspirin 162 mg 11/10/20 09:00 11/10/20 09:53 Aspirin 81 Mg PO 162 mg DAILY MANSI Administration Atorvastatin Calcium 40 mg 11/09/20 21:00 11/09/20 20:47 Atorvastatin 40 Mg Tab PO 40 mg HS MANSI Administration Benzocaine/Menthol 1 each 11/09/20 11:24 Benzocaine/Menthol Lozeng 1 Each Lozenge MUCOUS MEM Q2HR PRN Sore Throat Enoxaparin Sodium 40 mg 11/09/20 11:45 11/10/20 09:53 Enoxaparin 40 Mg/0.4 Ml Syringe SQ 40 mg DAILY MANSI Administration Nitroglycerin/Dextrose 50 mg/ 250 mls @ 0 mls/hr 11/09/20 05:50 IV Solution IV .Q0M MANSI Protocol Titrate Phenylephrine HCl 40 mg/ 254 mls @ 11.925 mls/hr 11/09/20 05:50 11/10/20 05:30 Sodium Chloride IV Not Given .[id number] MANSI Protocol 0.5 MCG/KG/MIN Lactated Ringer's 1,000 mls @ 80 mls/hr 11/09/20 05:50 11/10/20 09:09 Lactated Ringers IV Not Given .[id number] [facility] Cefazolin Sodium 2 gm/ Sodium 50 mls @ 100 mls/hr 11/09/20 17:00 11/10/20 09:52 Chloride IVPB 100 mls/hr Q8H MANSI Administration Labetalol HCl 10 mg 11/09/20 18:36 11/10/20 06:43 Labetalol 5 Mg/Ml Vial Mdv IVP 10 mg Q2HR PRN Administration Blood Pressure - High Lidocaine HCl 0.1 ml 11/09/20 05:50 Lidocaine 1% (10mg/Ml) For Iv Start INTRADERMA PER PROTOCOL PRN IV Start Loratadine 10 mg 11/09/20 14:41 11/09/20 15:11 Loratadine 10 Mg Tab PO 10 mg DAILY PRN Administration Congestion Losartan Potassium 50 mg 11/09/20 21:00 11/09/20 20:48 Losartan 50 Mg Tab PO 50 mg HS MANSI Administration Metoprolol Tartrate 50 mg 11/09/20 21:00 11/10/20 09:53 Metoprolol Tartrate 50 Mg Tab PO 50 mg BID MANSI Administration Morphine Sulfate 2 mg 11/09/20 11:24 11/10/20 06:25 Morphine Sulfate 2 Mg/Ml Syringe IVP 2 mg Q4H PRN Administration Pain Scale 6 to 7 Nitroglycerin 0.4 mg 11/09/20 15:17 Nitroglycerin Sl Tabs 0.4 Mg Tab SUBLINGUAL Q5M PRN Chest Pain Trimethobenzamide HCl 200 mg 11/09/20 11:24 Trimethobenzamide 100 Mg/Ml 2 Ml Vial IM Q4HR PRN Nausea And Vomiting Intake and Output 11/09/20 11/10/20 11/10/20 22:59 06:59 14:59 Intake Total 1130 1440 80 Output Total 755 1075 70 Balance 375 365 10 Intake: IV 640 720 80 Lactated Ringers 1,000 ml 640 720 80 @ 80 mls/hr IV .[id number] [facility] Rx#:[id number] Oral 490 720 Output: Urine 755 1075 70 Other: Voiding Method Indwelling Catheter Indwelling Catheter Weight 65 kg 11/10/20 09:25 11/10/20 09:25
--- NOTE | 2020-11-10 10:25 | P.PN ---
Subjective Progress Note Date: 11/10/20 Principal diagnosis: ICU management. Pulmonary consultation dated 11/09/2020. 70-year-old female, who is referred to vascular surgery because of left carotid artery stenosis. The patient underwent a left carotid endarterectomy today, with patch angioplasty. The surgery was done by . The surgery went well, according to the surgeon, the patient back in the ICU for monitoring. His her blood pressure is been a bit high, and she was initially some IV nitroglycerin, which was turned off by the ICU nurse. I did ask ICU nurses start the patient back on her regular blood pressure medications. She is resting comfortably. She's getting some saline at 80 mL an hour. She's not on any supplemental oxygen. She sitting next to a friend. The patient denies any issues. The patient's medical history includes atrial fibrillation, hyperlipidemia, hypertension, and previous tobacco use. No labs are able to be reviewed. Progress note dated 11/10/2020. The patient is postop day #1, status post left carotid endarterectomy, with patch angioplasty. The patient's resting comfortably. She is on 2 L. That can probably be weaned off. She's not receiving any IV fluids. She did have some issues with high blood pressure after surgery. Initially she was on IV n itroglycerin but that caused a headache. That was discontinued by the nurse, and she was started back on her home blood pressure medications. He has been seen today by Dr. Lawrence one of the vascular surgeons. The patient likely could be discharged home today. She has no complaints and is feeling well. White count 12.9, hemoglobin 11, hematocrit 34.1, platelet count 224,000. Sodium potassium chloride CO2 all normal. Anion gap normal. BUN and creatinine normal. Objective - Vital Signs Vital signs: Vital Signs Temp 98.6 F 11/10/20 08:00 Pulse 64 11/10/20 08:00 Resp 117 H 11/10/20 08:00 BP 176/83 11/10/20 08:00 Pulse Ox 94 L 11/10/20 08:00 Intake & Output 11/09/20 11/10/20 11/10/20 18:59 06:59 18:59 Intake Total 1482 2000 80 Output Total 1095 1515 70 Balance 387 485 10 Weight 63.6 kg 65 kg Intake: IV 1232 1040 80 Lactated Ringers 1,000 ml 480 1040 80 @ 80 mls/hr IV .[id number] [facility] Rx#:[id number] Oral 250 960 Output: Urine 1025 1515 70 Estimated Blood Loss 70 Other: Voiding Method Indwelling Catheter Indwelling Catheter Indwelling Catheter ABP, PAP, CO, CI - Last Documented Arterial Blood Pressure 105/40 - Exam No acute distress, oriented 3. Currently on 2 L. Room air saturation 94%. HEENT examination is grossly unremarkable. Neck supple. Full range of motion. No adenopathy thyromegaly or neck vein distention. A bandage is noted in the left neck area. Cardiovascular examination reveals regular rhythm rate. S1-S2 normal. No S3 or S4. No discernible murmur noted. Heart rate 64 bpm. Lungs reveal clear breath sounds. Breath sounds are equal bilaterally. No ad ventitious lung sounds including wheezes rhonchi or crackles. Abdomen soft bowel sounds are heard. No masses or tenderness. Extremities are intact. No cyanosis clubbing or edema. Skin is without rash or lesion. Neurologic examination is brief but nonfocal. - Labs CBC & Chem 7: 11/10/20 09:25 11/10/20 09:25 Labs: Abnormal Lab Results - Last 24 Hours (Table) 11/09/20 11/10/20 11/10/20 Range/Units 12:58 09:25 09:25 WBC 12.9 H (3.8-10.6) k/uL RBC 3.78 L (3.80-5.40) m/uL Hgb 11.0 L (11.4-16.0) gm/dL RDW 21.0 H (11.5-15.5) % Glucose 126 H (74-99) mg/dL POC Glucose (mg/dL) 148 H (75-99) mg/dL Assessment and Plan Assessment: Postop day #1, status post left carotid endarterectomy, with patch angioplasty, for severe left carotid artery stenosis. History of essential hypertension. History of hyperlipidemia. History of chronic atrial fibrillation. Prior history of tobacco use. Plan: Plan dated 11/09/2020. Currently, the patient's doing well. She's not requiring any supplemental ox ygen. She's getting a basic IV at 80 mL an hour. I did ask her nurse to resume her normal blood pressure medications. Hopefully, we will need to use any IV medications while here in the intensive care unit. The patient was on IV nitroglycerin but that's been turned off. Additional recommendations and suggestions are forthcoming. Prognosis is good. Plan dated 11/10/2020. Currently, her blood pressure is under much better control. We did resume her home blood pressure medications. Additional recommendations and suggestions are forthcoming. She has been seen by Dr. Lawrence. She is likely to be discharged home later today. No additional recommendations are made. The oxygen can be weaned off. She was not on any oxygen prior to surgery. Is probably not necessary. Time with Patient: Less than 30
--- NOTE | 2020-11-10 11:13 | P.DS ---
Providers Date of admission: 11/09/20 07:20 Expected date of discharge: 11/10/20 Attending physician: Reji Grace DO Consults: 11/09/20 11:24 Consult Physician Routine Consulting Provider: Samson Montgomery Consult Reason/Comments: medical management Do you want consulting provider notified?: Already Contacted 11/09/20 11:44 Consult Physician Routine Consulting Provider: Priya Huerta Consult Reason/Comments: cardiac issues Do you want consulting provider notified?: Yes Primary care physician: Lex Olmos [facility] Course: 70-year-old female who came in for scheduled outpatient carotid endarterectomy. The past medical history of coronary artery disease with previous stent placement, atrial fibrillation, hyperlipidemia, hypertension, former nicotine dependence and carotid stenosis. Yesterday she underwent left carotid endarterectomy with patch angioplasty for hemodynamically severe left ICA stenosis. She was then admitted to the ICU for observation overnight, during her procedure and recovery she did have episodes of hypertension and was started on IV nitroglycerin which was then discontinued in the ICU. Pressures 170s over 80s. Cardiology was consulted regarding elevated blood pressures and coronary artery disease. They have cleared patient for discharge home. Assessment: Patient was seen and examined today in the ICU sitting up at the bedside. Her Lawrence has been discontinued however she has not voided yet. She denies any focal deficits. She is tolerating her breakfast this morning. She denies any pain, shortness of breath, chest pain, abdominal pain, fevers or chills. Exam: General appearance: The patient is alert, oriented, in no acute distress. HET: Head is normocephalic and atraumatic. Pupils are equal and reactive. Oropharynx is clear without lesions. Neck: Supple without lymphadenopathy. Trachea midline. Incision to left side of neck clean dry and intact without any drainage, mild swelling. Heart: S1 S2. Regular rate and rhythm. Lungs: Clear to auscultation Abdomen: Soft, nontender, nondistended. Extremities: Normal skin color and turgor. Bilateral +2 radial pulses. Neurological: No focal deficits. Strength and sensation are grossly intact. Assessment: 1. Hemodynamically severe left ICA stenosis status post left carotid endarterectomy with patch angioplasty 2. Hypertension 3. History of Coronary artery disease status post stent placement 4. History of Atrial fibrillation Plan: Discontinue Lawrence catheter Discontinue arterial line Cardiology on consult, they have cleared patient for discharge Resume home medications as instructed Patient may shower in 24 hours Patient may be discharged home once voiding The impression and plan of care has been dictated as directed. Dr. Lawrence I performed a history and examination of this patient, discussed the same with the dictator. I agree with the dictator's note ,documented as a scribe. Any additional findings or plans will be noted. Health Concerns: Coronary artery disease, hypertension Procedures: Left carotid endarterectomy with patch angioplasty Patient Condition at Discharge: Good Plan - Discharge Summary Discharge Rx Participant: Yes New Discharge Prescriptions: Continue Apixaban [Eliquis] 5 mg PO BID #60 tab Nitroglycerin Sl Tabs [Nitrostat] 0.4 mg SUBLINGUAL Q5M PRN #50 tab PRN Reason: Chest Pain Amiodarone [Cordarone] 100 mg PO QAM Metoprolol Tartrate [Lopressor] 50 mg PO BID Atorvastatin [Lipitor] 40 mg PO HS #90 tablet Losartan Potassium 50 mg PO HS Clopidogrel [Plavix] 75 mg PO HS Discharge Medication List Apixaban [Eliquis] 5 mg PO BID #60 tab 08/26/19 [Rx] Nitroglycerin Sl Tabs [Nitrostat] 0.4 mg SUBLINGUAL Q5M PRN #50 tab 08/26/19 [Rx] Amiodarone [Cordarone] 100 mg PO QAM 11/09/19 [History] Metoprolol Tartrate [Lopressor] 50 mg PO BID 11/09/19 [History] Atorvastatin [Lipitor] 40 mg PO HS #90 tablet 11/12/19 [Rx] Losartan Potassium 50 mg PO HS 08/29/20 [History] Clopidogrel [Plavix] 75 mg PO HS 11/03/20 [History] Follow up Appointment(s)/Referral(s): Lex Olmos MD [Primary Care Provider] - 1 Week Reji Grace DO [Doctor of Osteopathic Medicine] - 1 Week Patient Instructions/Handouts: Carotid Endarterectomy (DC) Activity/Diet/Wound Care/Special Instructions: May resume Eliquis this evening Resume Plavix tomorrow May shower beginning tomorrow, no tub bathing Follow-up with Dr. Portillo in 7-10 days Discharge Disposition: HOME SELF-CARE
[2020-11-10 14:13] VITALS: PULSE 61; RESP 19
== END 2020-11-10 14:14 | disposition home or self-care (01) | DRG 38 ==
LOC: 2ORMAIN 11-09 07:20 → 2SICU 11-09 11:40
PROVIDERS: ADMIT Surgery; ATTEND Surgery
PROC: 03CL0ZZ Extirpation of Matter from Left Internal Carotid Artery, Open Approach (ICD-10-PCS; principal; 2020-11-09 11:15)
PROC: 03UL0JZ Supplement Left Internal Carotid Artery with Synthetic Substitute, Open Approach (ICD-10-PCS; principal; 2020-11-09 11:15)
DX: I65.22 Occlusion and stenosis of left carotid artery (principal); I48.20 Chronic atrial fibrillation, unspecified; E78.5 Hyperlipidemia, unspecified; I10 Essential (primary) hypertension; M19.90 Unspecified osteoarthritis, unspecified site; I25.10 Atherosclerotic heart disease of native coronary artery without angina pectoris; Z79.01 Long term (current) use of anticoagulants; Z79.899 Other long term (current) drug therapy; Z82.49 Family history of ischemic heart disease and other diseases of the circulatory system; Z83.3 Family history of diabetes mellitus; Z87.891 Personal history of nicotine dependence; Z95.5 Presence of coronary angioplasty implant and graft; Z98.51 Tubal ligation status; Z98.890 Other specified postprocedural states; Z80.9 Family history of malignant neoplasm, unspecified; Z81.1 Family history of alcohol abuse and dependence; Z88.5 Allergy status to narcotic agent; Z88.7 Allergy status to serum and vaccine; Z88.8 Allergy status to other drugs, medicaments and biological substances; Z20.822 Contact with and (suspected) exposure to COVID-19
CPT/HCPCS: 80048; 85027; 86850; 86900; 86901; 87635; 88304; 93005

== ENCOUNTER → 2020-11-07 | Outpatient (CLI) | payer MEDICARE, OTHER | END | disposition home or self-care (01) | LOC: LABPAT 09:02 | PROVIDERS: ATTEND Surgery | DX: Z01.812 Encounter for preprocedural laboratory examination (principal); R00.1 Bradycardia, unspecified | CPT/HCPCS: 93005 ==

== ENCOUNTER → 2021-06-08 | Outpatient (CLI) | payer MEDICARE, OTHER ==
[2021-06-08 17:24] LABS: ALT 28 U/L (8-44); AST 21 U/L (13-35); African American GFR (CKD) 115.5 (60.0-200.0); Albumin 4.1 g/dL (3.8-4.9); Alkaline Phosphatase 151 U/L (41-126); BUN/Creat Ratio 33.33 Ratio (12.00-20.00); Blood Urea Nitrogen 16.2 mg/dL (9.0-27.0); Calcium 9.3 mg/dL (8.7-10.3); Carbon Dioxide 18.4 mmol/L (20.0-27.5); Chloride 109 mmol/L (96-109); Chol/HDL Ratio 2.59 Ratio; Globulin 2.6 g/dL (1.6-3.3); Glucose 94 mg/dL (70-110); LDL Cholesterol,Calculated 54.3 mg/dL (0.0-131.0); Non-African American GFR(CKD) 99.7 (60.0-200.0); Potassium 4.6 mmol/L (3.5-5.5); Sodium 138 mmol/L (135-145); Total Protein 6.7 g/dL (6.2-8.2)
== END | disposition home or self-care (01) ==
LOC: LABWHC1 09:18
PROVIDERS: ATTEND Internal Medicine Interventional Cardiology
DX: E78.2 Mixed hyperlipidemia (principal); I48.0 Paroxysmal atrial fibrillation
CPT/HCPCS: 36415; 80053; 80061; 84443

== ENCOUNTER → 2021-08-06 | Outpatient (CLI) | payer MEDICARE, OTHER ==
--- NOTE | 2021-08-06 16:04 | XR ---
EXAMINATION TYPE: XR chest 2V DATE OF EXAM: 08/06/2021 COMPARISON: 08/23/2019 HISTORY: 71-year-old female R05.9 TECHNIQUE: Frontal and lateral views FINDINGS: Heart normal size. Aorta and pulmonary vasculature within normal limits. Some irregular opacity in po ssible underlying cystic change at the right upper lobe is unchanged with biapical pleural-parenchyma l scarring. Air-fluid level in the retrocardiac region. Otherwise, no consolidation or pleural effusi on. IMPRESSION: 1. COPD. Right upper lobe findings which may represent scarring and underlying bullous change. Recomm end further contrast enhanced CT evaluation to better characterize and exclude any suspicious nodular ity. 2. Underlying moderate-sized hiatal hernia.
== END | disposition home or self-care (01) ==
LOC: RADXRMAIN 13:36
PROVIDERS: ATTEND Family Medicine
DX: J44.9 Chronic obstructive pulmonary disease, unspecified (principal); K44.9 Diaphragmatic hernia without obstruction or gangrene
CPT/HCPCS: 71046

== ENCOUNTER → 2021-08-13 | Outpatient (CLI) | payer MEDICARE, OTHER ==
[2021-08-13 08:36] LABS: African American GFR (CKD) >90 (>60 ml/min/1.73 sqM); Blood Urea Nitrogen 9 mg/dL (7-17); Non-African American GFR(CKD) >90 (>60 ml/min/1.73 sqM)
--- NOTE | 2021-08-13 11:20 | CT ---
EXAMINATION TYPE: CT angio neck DATE OF EXAM: 08/13/2021 HISTORY: Carotid stenosis COMPARISON: CT dated 08/10/2020 CT DLP: 170.0 mGycm. Automated Exposure Control for Dose Reduction was Utilized. TECHNIQUE: CTA scan of the neck is performed with IV Contrast, patient injected with 65 mL of Isovue 370, axial images are obtained, coronal and sagittal reformatted images are reviewed. 3D reconstruct ed images are created on an independent workstation and reviewed. FINDINGS: Scattered arterial atherosclerotic calcifications and tortuosity. Mild atherosclerotic disease of the right common carotid artery without significant stenosis. About 80 % stenosis of the proximal portio n of the right internal carotid artery by a partially calcified atheromatous plaque for about 10 mm y et patent distally. Moderate atherosclerotic disease of the left common carotid artery without significant stenosis. Abou t 50 % stenosis of the proximal portion of the left internal carotid artery with thickened wall witho ut calcified atheromatous plaque, extending for about 4 mm yet patent distally. This has significantl y improved compared to the previous CT scan. Mild stenosis of the origin the left vertebral artery, otherwise normal caliber and enhancement of th e vertebral arteries. No other significant stenosis seen in the major neck arteries. Marked fatty inf iltration of the parotid glands. COPD changes with severe scarring and fibrotic changes at the lung a pex bilaterally. Mucosal thickening of the ethmoid air cells and right axillary sinus with chronic in flammatory changes of the left sphenoid sinus compartment. Osteopenia. Degenerative changes of the ce rvical spine most evident at C4-5, C5-6 and C6-7 levels. IMPRESSION: 1. About 50% stenosis of the proximal portion of the left internal carotid artery, improved compared to the previous CT scan, likely secondary to interval intervention. 2. About 80% stenosis of the right internal carotid artery with other incidental findings as describe d above.
== END | disposition home or self-care (01) ==
LOC: RADCTMAIN 07:58
PROVIDERS: ATTEND Surgery
DX: I65.23 Occlusion and stenosis of bilateral carotid arteries (principal); I65.02 Occlusion and stenosis of left vertebral artery; J44.9 Chronic obstructive pulmonary disease, unspecified; J84.10 Pulmonary fibrosis, unspecified; M85.88 Other specified disorders of bone density and structure, other site; M47.812 Spondylosis without myelopathy or radiculopathy, cervical region; J32.3 Chronic sphenoidal sinusitis
CPT/HCPCS: 82565; 84520; 70498; 36415; Q9967

== ENCOUNTER 2021-12-04 22:30 | Inpatient (IN) | payer MEDICARE, OTHER ==
[2021-12-04] MEDS ORDERED: SODIUM CHLORIDE 0.9% 1,000 ML IV STA (23:06)
[2021-12-04] MEDS ORDERED: PANTOPRAZOLE 40 MG/10 ML VIAL IVP STA (23:06)
[2021-12-04] MEDS ORDERED: ONDANSETRON 4 MG/2 ML VIAL IVP STA (23:06)
--- NOTE | 2021-12-04 23:08 | ED ---
Recheck HPI - General Chief Complaint: Recheck/Abnormal Lab/Rx Stated Complaint: abnormal labs Time Seen by Provider: 12/04/21 23:06 Source: patient, RN notes reviewed, old records reviewed Mode of arrival: ambulatory Limitations: no limitations - History of Present Illness Initial Comments: This is a 71-year-old female she does have H a fibrillation history on blood thinners. Patient presents today with low hemoglobin. Denies any active bleeding she had outpatient hemoglobin test which was 5.2 so she comes in for evaluation ofhemoglobin. Patient has no recent traumatic injuries. Denies any vomiting of blood denies bloody stools. Patient states she has history of ulcer bleeding MD Complaint: abnormal lab (Low hemoglobin) -: unknown Returns Today for: Called Because of Abnormal Lab/Test Symptoms Since Prior Visit: no new symptoms Context: called for abnormal lab result Associated Symptoms: none Treatments Prior to Arrival: other - Related Data Home Medications Medication Instructions Recorded Confirmed Amiodarone [Cordarone] 100 mg PO QAM 11/09/19 11/03/20 Metoprolol Tartrate [Lopressor] 50 mg PO BID 11/09/19 11/03/20 Losartan Potassium 50 mg PO HS 08/29/20 11/03/20 Clopidogrel [Plavix] 75 mg PO HS 11/03/20 11/03/20 Previous Rx's Medication Instructions Recorded Apixaban [Eliquis] 5 mg PO BID #60 tab 08/26/19 Nitroglycerin Sl Tabs [Nitrostat] 0.4 mg SUBLINGUAL Q5M PRN #50 tab 08/26/19 Atorvastatin [Lipitor] 40 mg PO HS #90 tablet 11/12/19 Allergies Allergy/AdvReac Type Severity Reaction Status Date / Time adhesive tape Allergy Rash/Hives Verified 12/04/21 22:35 tetanus toxoid, adsorbed Allergy Swelling Verified 12/04/21 22:35 codeine AdvReac Abdominal Verified 12/04/21 22:35 Pain pseudoephedrine HCl AdvReac Hallucinati Verified 12/04/21 22:35 [From Les] ons Review of Systems ROS Statement: Those systems with pertinent positive or pertinent negative responses have been documented in the HPI. ROS Other: All systems not noted in ROS Statement are negative. Past Medical History Past Medical History: Atrial Fibrillation, Coronary Artery Disease (CAD), Hyperlipidemia, Hypertension, Osteoarthritis (OA) Additional Past Medical History / Comment(s): HGB 7.9 on 08/24/20, awaiting carotid endarectomy History of Any Multi-Drug Resistant Organisms: ESBL Date of last positivie culture/infection: 08/24/19 MDRO Source:: ESBL URINE Past Surgical History: Heart Catheterization With Stent, Orthopedic Surgery, Tubal Ligation Additional Past Surgical History / Comment(s): TENDON TRANSPLANT rt knee, Past Anesthesia/Blood Transfusion Reactions: No Reported Reaction Additional Past Anesthesia/Blood Transfusion Reaction / Comment(s): . Date of Last Stent Placement:: 10/2019 Past Psychological History: No Psychological Hx Reported Smoking Status: Former smoker Past Alcohol Use History: None Reported Past Drug Use History: None Reported - Past Family History Mother Family Medical History: Congestive Heart Failure (CHF), Diabetes Mellitus Father Additional Family Medical History / Comment(s): DRINKER Brother(s) Family Medical History: Cancer General Exam Limitations: no limitations General appearance: alert, in no apparent distress Head exam: Present: atraumatic, normocephalic, normal inspection Eye exam: Present: normal appearance, PERRL, EOMI. Absent: scleral icterus, conjunctival injection, periorbital swelling ENT exam: Present: normal exam, mucous membranes moist Neck exam: Present: normal inspection. Absent: tenderness, meningismus, lymphadenopathy Respiratory exam: Present: normal lung sounds bilaterally. Absent: respiratory distress, wheezes, rales, rhonchi, stridor Cardiovascular Exam: Present: regular rate, normal rhythm, normal heart sounds. Absent: systolic murmur, diastolic murmur, rubs, gallop, clicks GI/Abdominal exam: Present: soft, normal bowel sounds. Absent: distended, tenderness, guarding, rebound, rigid Extremities exam: Present: normal inspection, full ROM, normal capillary refill. Absent: tenderness, pedal edema, joint swelling, calf tenderness Back exam: Present: normal inspection Neurological exam: Present: alert, oriented X3, CN II-XII intact Psychiatric exam: Present: normal affect, normal mood Skin exam: Present: warm, dry, intact, normal color. Absent: rash Course Vital Signs 12/04/21 12/05/21 22:31 01:44 Temperature 97.9 F 97.8 F Pulse Rate 81 68 Respiratory 18 18 Rate Blood Pressure 181/76 176/78 O2 Sat by Pulse 97 97 Oximetry - Reevaluation(s) Reevaluation #1: 12/04/21 22:59 Medical record is reviewed Reevaluation #2: 12/04/21 22:59 Patient informed results and questions answered Reevaluation #3: 12/04/21 22:59 Patient's in no acute distress does not feel like she given a pass out. No active current bleeding no nausea vomiting blood, no dark blood in her stool - Consultations Consultation #1: Spoke with Dr. Olmos who is agreeable to admission Medical Decision Making - Medical Decision Making 71 female to the emergency room for evaluation patient presents today for evaluation regards to significant anemia, history of GI bleed. She is on Ahlquist. Patient's hemoglobin trended from 5.2 earlier to 5.9 today. Patient will be transfused and admitted - Lab Data Result diagrams: 12/04/21 23:33 12/04/21 23:33 Lab Results 12/04/21 12/04/21 12/04/21 Range/Units 23:33 23:33 23:33 WBC 8.5 (3.8-10.6) k/uL RBC 2.88 L (3.80-5.40) m/uL Hgb 5.9 L* (11.4-16.0) gm/dL Hct 22.2 L (34.0-46.0) % MCV 76.9 L (80.0-100.0) fL MCH 20.4 L (25.0-35.0) pg MCHC 26.6 L (31.0-37.0) g/dL RDW 17.8 H (11.5-15.5) % Plt Count 262 (150-450) k/uL MPV 8.1 Neutrophils % 75 % Lymphocytes % 14 % Monocytes % 6 % Eosinophils % 3 % Basophils % 1 % Neutrophils # 6.3 (1.3-7.7) k/uL Lymphocytes # 1.2 (1.0-4.8) k/uL Monocytes # 0.5 (0-1.0) k/uL Eosinophils # 0.2 (0-0.7) k/uL Basophils # 0.1 (0-0.2) k/uL Hypochromasia Marked Poikilocytosis Slight Anisocytosis Slight Microcytosis Slight APTT 25.4 (22.0-30.0) sec Sodium 141 (137-145) mmol/L Potassium 3.7 (3.5-5.1) mmol/L Chloride 113 H (98-107) mmol/L Carbon Dioxide 18 L (22-30) mmol/L Anion Gap 10 mmol/L BUN 20 H (7-17) mg/dL Creatinine 0.61 (0.52-1.04) mg/dL Est GFR (CKD-EPI)AfAm >90 (>60 ml/min/1.73 sqM) Est GFR (CKD-EPI)NonAf >90 (>60 ml/min/1.73 sqM) Glucose 97 (74-99) mg/dL Calcium 8.7 (8.4-10.2) mg/dL Magnesium 1.9 (1.6-2.3) mg/dL Total Bilirubin 0.3 (0.2-1.3) mg/dL AST 26 (14-36) U/L ALT 20 (4-34) U/L Alkaline Phosphatase 132 H (38-126) U/L Troponin I (0.000-0.034) ng/mL Total Protein 7.1 (6.3-8.2) g/dL Albumin 4.1 (3.5-5.0) g/dL Lipase 205 (23-300) U/L 12/04/21 Range/Units 23:33 WBC (3.8-10.6) k/uL RBC (3.80-5.40) m/uL Hgb (11.4-16.0) gm/dL Hct (34.0-46.0) % MCV (80.0-100.0) fL MCH (25.0-35.0) pg MCHC (31.0-37.0) g/dL RDW (11.5-15.5) % Plt Count (150-450) k/uL MPV Neutrophils % % Lymphocytes % % Monocytes % % Eosinophils % % Basophils % % Neutrophils # (1.3-7.7) k/uL Lymphocytes # (1.0-4.8) k/uL Monocytes # (0-1.0) k/uL Eosinophils # (0-0.7) k/uL Basophils # (0-0.2) k/uL Hypochromasia Poikilocytosis Anisocytosis Microcytosis APTT (22.0-30.0) sec Sodium (137-145) mmol/L Potassium (3.5-5.1) mmol/L Chloride (98-107) mmol/L Carbon Dioxide (22-30) mmol/L Anion Gap mmol/L BUN (7-17) mg/dL Creatinine (0.52-1.04) mg/dL Est GFR (CKD-EPI)AfAm (>60 ml/min/1.73 sqM) Est GFR (CKD-EPI)NonAf (>60 ml/min/1.73 sqM) Glucose (74-99) mg/dL Calcium (8.4-10.2) mg/dL Magnesium (1.6-2.3) mg/dL Total Bilirubin (0.2-1.3) mg/dL AST (14-36) U/L ALT (4-34) U/L Alkaline Phosphatase (38-126) U/L Troponin I <0.012 (0.000-0.034) ng/mL Total Protein (6.3-8.2) g/dL Albumin (3.5-5.0) g/dL Lipase (23-300) U/L Disposition Clinical Impression: Anemia, GI bleed Disposition: ADMITTED IP TO THIS [facility] Condition: Good Is patient prescribed a controlled substance at d/c from ED?: No Time of Disposition: 23:00
[2021-12-04 23:58] LABS: Anisocytosis Slight; Basophils # (A) 0.1 k/uL (0-0.2); Basophils % (A) 1 %; Eosinophils # (A) 0.2 k/uL (0-0.7); Eosinophils % (A) 3 %; HCT 22.2 % (34.0-46.0); Hypochromasia Marked; Lymphocytes # (A) 1.2 k/uL (1.0-4.8); Lymphocytes % (A) 14 %; MCH 20.4 pg (25.0-35.0); MCHC 26.6 g/dL (31.0-37.0); MCV 76.9 fL (80.0-100.0); Mean Platelet Volume 8.1; Microcytosis Slight; Monocytes # (A) 0.5 k/uL (0-1.0); Monocytes % (A) 6 %; Neutrophils # (A) 6.3 k/uL (1.3-7.7); Neutrophils % (A) 75 %; Platelet Count 262 k/uL (150-450); Poikilocytosis Slight; RBC 2.88 m/uL (3.80-5.40); RDW 17.8 % (11.5-15.5); WBC 8.5 k/uL (3.8-10.6)
[2021-12-05 00:15] LABS: ALT 20 U/L (4-34); AST 26 U/L (14-36); African American GFR (CKD) >90 (>60 ml/min/1.73 sqM); Albumin 4.1 g/dL (3.5-5.0); Alkaline Phosphatase 132 U/L (38-126); Anion Gap 10 mmol/L; Blood Urea Nitrogen 20 mg/dL (7-17); Calcium 8.7 mg/dL (8.4-10.2); Carbon Dioxide 18 mmol/L (22-30); Chloride 113 mmol/L (98-107); Glucose 97 mg/dL (74-99); Lipase 205 U/L (23-300); Magnesium 1.9 mg/dL (1.6-2.3); Non-African American GFR(CKD) >90 (>60 ml/min/1.73 sqM); Potassium 3.7 mmol/L (3.5-5.1); Sodium 141 mmol/L (137-145); Total Bilirubin 0.3 mg/dL (0.2-1.3); Total Protein 7.1 g/dL (6.3-8.2)
[2021-12-05 00:18] LABS: HGB 5.9 gm/dL (11.4-16.0)
[2021-12-05] MEDS ORDERED: NALOXONE 0.4 MG/ML 1 ML VIAL IV PRN (00:34)
[2021-12-05] MEDS ORDERED: MORPHINE SULFATE 4 MG/ML SYRINGE IV PRN (00:34)
[2021-12-05] MEDS ORDERED: ONDANSETRON 4 MG/2 ML VIAL IVP PRN (00:34)
[2021-12-05] MEDS: SODIUM CHLORIDE 0.9% 1,000 ML IV SCH (07:55)
--- NOTE | 2021-12-05 08:44 | P.HPIM ---
History of Present Illness H&P Date: 12/05/21 Chief Complaint: Anemia The patient is here essentially for anemia. History of GI bleed in the past. She saw cardiology and was diagnosed with critical anemia 5.9. She is now admitted for EGD and transfusion. Relatively a symptomatically. No chest pain no stated melena or hematochezia is noted. No hematemesis. No alcohol use is stated. The patient has an underlying history of hypertension with chronic atrial fibrillation. Review of Systems Constitutional: Denies chills, Denies fever Eyes: denies blurred vision, denies pain Ears, nose, mouth and throat: Denies headache, Denies sore throat Cardiovascular: Denies chest pain, Denies shortness of breath Respiratory: Denies cough Gastrointestinal: Reports as per HPI Genitourinary: Denies dysuria, Denies hematuria Past Medical History Past Medical History: Atrial Fibrillation, Coronary Artery Disease (CAD), Hyperlipidemia, Hypertension, Osteoarthritis (OA) Additional Past Medical History / Comment(s): HGB 7.9 on 08/24/20, awaiting carotid endarectomy History of Any Multi-Drug Resistant Organisms: ESBL Date of last positivie culture/infection: 08/24/19 MDRO Source:: ESBL URINE Past Surgical History: Heart Catheterization With Stent, Orthopedic Surgery, Tubal Ligation Additional Past Surgical History / Comment(s): TENDON TRANSPLANT rt knee, Past Anesthesia/Blood Transfusion Reactions: No Reported Reaction Additional Past Anesthesia/Blood Transfusion Reaction / Comment(s): . Date of Last Stent Placement:: 10/2019 Past Psychological History: No Psychological Hx Reported Smoking Status: Former smoker Past Alcohol Use History: None Reported Past Drug Use History: None Reported - Past Family History Mother Family Medical History: Congestive Heart Failure (CHF), Diabetes Mellitus Father Additional Family Medical History / Comment(s): DRINKER Brother(s) Family Medical History: Cancer Medications and Allergies Home Medications Medication Instructions Recorded Confirmed Type Apixaban [Eliquis] 5 mg PO BID #60 tab 08/26/19 12/05/21 Rx Nitroglycerin Sl Tabs [Nitrostat] 0.4 mg SUBLINGUAL Q5M PRN #50 tab 08/26/19 12/05/21 Rx Amiodarone [Cordarone] 100 mg PO QAM 11/09/19 12/05/21 History Metoprolol Tartrate [Lopressor] 50 mg PO BID 11/09/19 12/05/21 History Clopidogrel [Plavix] 75 mg PO HS 11/03/20 12/05/21 History Cetirizine HCl [Zyrtec] 10 mg PO DAILY 12/05/21 12/05/21 History Losartan Potassium [Cozaar] 100 mg PO HS 12/05/21 12/05/21 History Allergies Allergy/AdvReac Type Severity Reaction Status Date / Time adhesive tape Allergy Rash/Hives Verified 12/05/21 07:08 tetanus toxoid, adsorbed Allergy Swelling Verified 12/05/21 07:08 banana AdvReac sores in Verified 12/05/21 07:08 mouth codeine AdvReac Abdominal Verified 12/05/21 07:08 Pain pseudoephedrine HCl AdvReac Hallucinati Verified 12/05/21 07:08 [From [facility]] ons walnut AdvReac sores in Verified 12/05/21 07:08 mouth Physical Exam Vitals: Vital Signs Temp Pulse Resp BP Pulse Ox 12/05/21 08:02 97.9 F 74 18 167/84 95 12/05/21 06:22 97.8 F 82 18 147/66 92 L 12/05/21 05:49 97.7 F 68 18 168/78 96 12/05/21 05:19 97.9 F 68 18 179/80 94 L 12/05/21 05:09 97.7 F 94 18 170/89 94 L 12/05/21 05:02 97.9 F 76 18 172/94 94 L 12/05/21 03:28 98.1 F 75 18 170/73 12/05/21 03:08 98.2 F 76 18 171/83 92 L 12/05/21 03:03 98.2 F 79 18 172/67 92 L 12/05/21 02:58 97.1 F L 79 18 156/73 12/05/21 02:48 98 F 75 18 152/81 94 L 12/05/21 01:44 97.8 F 68 18 176/78 97 12/04/21 22:31 97.9 F 81 18 181/76 97 Intake and Output 12/04/21 12/05/21 12/05/21 22:59 06:59 14:59 Intake Total 310 279 Balance 310 279 Intake: Blood Product 310 279 Rc As-1 Unit 310 [id number] Rc Pheresis As-3 Unit 0 279 [id number] Other: Weight 63.503 kg - Constitutional General appearance: no acute distress - EENT Eyes: EOMI - Neck Neck: no lymphadenopathy - Respiratory Respiratory: bilateral: CTA - Cardiovascular Rhythm: irregularly irregular Heart sounds: normal: S1, S2 Abnormal Heart Sounds: no S3 Gallop - Gastrointestinal General gastrointestinal: soft, no tenderness - Integumentary Integumentary: no calor, no cyanotic Results CBC & Chem 7: 12/04/21 23:33 12/04/21 23:33 Labs: Abnormal Lab Results - Last 24 Hours (Table) 12/04/21 12/04/21 12/05/21 Range/Units 23:33 23:33 01:33 RBC 2.88 L (3.80-5.40) m/uL Hgb 5.9 L* (11.4-16.0) gm/dL Hct 22.2 L (34.0-46.0) % MCV 76.9 L (80.0-100.0) fL MCH 20.4 L (25.0-35.0) pg MCHC 26.6 L (31.0-37.0) g/dL RDW 17.8 H (11.5-15.5) % Chloride 113 H (98-107) mmol/L Carbon Dioxide 18 L (22-30) mmol/L BUN 20 H (7-17) mg/dL Alkaline Phosphatase 132 H (38-126) U/L Crossmatch See Detail Assessment and Plan (1) Chronic atrial fibrillation Current Visit: Yes Status: Acute Code(s): I48.20 - CHRONIC ATRIAL FIBRILLATION, UNSPECIFIED SNOMED Code(s): 718877440 (2) Anemia Current Visit: Yes Status: Acute Code(s): D64.9 - ANEMIA, UNSPECIFIED SNOM ED Code(s): 022463851 (3) GI bleed Current Visit: Yes Status: Acute Code(s): K92.2 - GASTROINTESTINAL HEMORRHAGE, UNSPECIFIED SNOMED Code(s): 49699219 (4) Hypertension Current Visit: No Status: Acute Code(s): I10 - ESSENTIAL (PRIMARY) HYPERTENSION SNOMED Code(s): 54705145 Plan: Hold off anticoagulation. EGD in a.m. is scheduled. Check CBC and CMP in a.m. Reconcile medications otherwise. Patient is a full code. Time with Patient: Greater than 30
[2021-12-05] MEDS ORDERED: ACETAMINOPHEN TAB 500 MG TAB PO STA (10:45)
--- NOTE | 2021-12-05 10:54 | P.CONS ---
History of Present Illness - Reason for Consult Consult date: 12/05/21 GI bleed Requesting physician: Lex Olmos - Chief Complaint Abnormal labs, low hemoglobin - History of Present Illness This very pleasant 71-year-old female with a past medical history of coronary artery disease, atrial fibrillation on Eliquis, carotid stenosis status post carotid endarterectomy on Plavix, hyperlipidemia, hypertension and osteoarthritis. Patient was called by her day care home provider and told that she had a low hemoglobin she needs to go to the emergency department. On admission she was noted to have a hemoglobin of 5.9. She was given 2 units PRBC transfusion. Patient denies any blood in her stool, maroon colored stool, or black stool. Denies any abdominal pain, nausea or vomiting. She does have a history of previous GI bleed. She underwent EGD and colonoscopy on 09/01/[address] Gates. 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 Colonoscopy revealed multiple colon polyps status post polypectomy and scattered sigmoid diverticulosis. Admitting labs: WBC 8.5 hemoglobin 5.9 hematocrit 22 platelet count 262,000 sodium 141 potassium 3.7 BUN 20 creatinine 0.6 total bilirubin 1.9 AST is 26 ALT 20 alkaline phosphatase 132 Review of Systems REVIEW OF SYSTEMS: CARDIOPULMONARY: No chest pain or shortness of breath. Gastrointestinal: No abdominal pain. No nausea or vomiting. No hematemesis, coffee-ground emesis. No rectal bleeding, or melena. GENITOURINARY: No dysuria or hematuria. MUSCULOSKELETAL: Reports normal range of motion., Joint pain. SKIN: No rashes. No jaundice. ENDOCRINE: No chills, fevers. No excessive weight gain or loss. No polydipsia or polyuria. PSYCHIATRIC: Unremarkable. NEUROLOGY: No change in mental status. Denies dizziness, headache. ENT: Vision unremarkable. CONSTITUTIONAL: No recent weight loss. No fever, chills, night sweats. Past Medical History Past Medical History: Atrial Fibrillation, Coronary Artery Disease (CAD), Hyperlipidemia, Hypertension, Osteoarthritis (OA) Additional Past Medical History / Comment(s): HGB 7.9 on 08/24/20, awaiting carotid endarectomy History of Any Multi-Drug Resistant Organisms: ESBL Year Discovered:: 08/24/19 MDRO Source:: ESBL URINE Past Surgical History: Heart Catheterization With Stent, Orthopedic Surgery, Tubal Ligation Additional Past Surgical History / Comment(s): TENDON TRANSPLANT rt knee, Past Anesthesia/Blood Transfusion Reactions: No Reported Reaction Additional Past Anesthesia/Blood Transfusion Reaction / Comm: . Date of Last Stent Placement:: 10/2019 Past Psychological History: No Psychological Hx Reported Smoking Status: Former smoker Past Alcohol Use History: None Reported Past Drug Use History: None Reported - Past Family History Mother Family Medical History: Congestive Heart Failure (CHF), Diabetes Mellitus Father Additional Family Medical History / Comment(s): DRINKER Brother(s) Family Medical History: Cancer Medications and Allergies Home Medications Medication Instructions Recorded Confirmed Type Apixaban [Eliquis] 5 mg PO BID #60 tab 08/26/19 12/05/21 Rx Nitroglycerin Sl Tabs [Nitrostat] 0.4 mg SUBLINGUAL Q5M PRN #50 tab 08/26/19 12/05/21 Rx Amiodarone [Cordarone] 100 mg PO QAM 11/09/19 12/05/21 History Metoprolol Tartrate [Lopressor] 50 mg PO BID 11/09/19 12/05/21 History Clopidogrel [Plavix] 75 mg PO HS 11/03/20 12/05/21 History Cetirizine HCl [Zyrtec] 10 mg PO DAILY 12/05/21 12/05/21 History Losartan Potassium [Cozaar] 100 mg PO HS 12/05/21 12/05/21 History Allergies Allergy/AdvReac Type Severity Reaction Status Date / Time adhesive tape Allergy Rash/Hives Verified 12/05/21 07:08 tetanus toxoid, adsorbed Allergy Swelling Verified 12/05/21 07:08 banana AdvReac sores in Verified 12/05/21 07:08 mouth codeine AdvReac Abdominal Verified 12/05/21 07:08 Pain pseudoephedrine HCl AdvReac Hallucinati Verified 12/05/21 07:08 [From Les] ons walnut AdvReac sores in Verified 12/05/21 07:08 mouth Physical Exam Vitals: Vital Signs Temp Pulse Resp BP Pulse Ox 12/05/21 08:02 97.9 F 74 18 167/84 95 12/05/21 06:22 97.8 F 82 18 147/66 92 L 12/05/21 05:49 97.7 F 68 18 168/78 96 12/05/21 05:19 97.9 F 68 18 179/80 94 L 12/05/21 05:09 97.7 F 94 18 170/89 94 L 12/05/21 05:02 97.9 F 76 18 172/94 94 L 12/05/21 03:28 98.1 F 75 18 170/73 12/05/21 03:08 98.2 F 76 18 171/83 92 L 12/05/21 03:03 98.2 F 79 18 172/67 92 L 12/05/21 02:58 97.1 F L 79 18 156/73 12/05/21 02:48 98 F 75 18 152/81 94 L 12/05/21 01:44 97.8 F 68 18 176/78 97 12/04/21 22:31 97.9 F 81 18 181/76 97 Intake and Output 12/04/21 12/05/21 12/05/21 22:59 06:59 14:59 Intake Total 310 279 Balance 310 279 Intake: Blood Product 310 279 Rc As-1 Unit 310 [id number] Rc Pheresis As-3 Unit 0 279 [id number] Other: Weight 63.503 kg General appearance: The patient is alert, oriented, appears in no acute distress. HET: Head is normocephalic and atraumatic. Conjunctiva pink. Sclera anicteric. Neck: Supple without lymphadenopathy. Trachea midline. Heart: S1 S2. Regular rate and rhythm. Lungs: Clear to auscultation. Abdomen: Soft, nontender, nondistended with bowel sounds. No guarding or rig idity. Skin: No rashes. No jaundice. Extremities: Normal skin color and turgor. No pedal edema. Neurological: No focal deficits. Alert and oriented x3. Results CBC & Chem 7: 12/04/21 23:33 12/04/21 23:33 Labs: Abnormal Lab Results - Last 24 Hours (Table) 12/04/21 12/04/21 12/05/21 Range/Units 23:33 23:33 01:33 RBC 2.88 L (3.80-5.40) m/uL Hgb 5.9 L* (11.4-16.0) gm/dL Hct 22.2 L (34.0-46.0) % MCV 76.9 L (80.0-100.0) fL MCH 20.4 L (25.0-35.0) pg MCHC 26.6 L (31.0-37.0) g/dL RDW 17.8 H (11.5-15.5) % Chloride 113 H (98-107) mmol/L Carbon Dioxide 18 L (22-30) mmol/L BUN 20 H (7-17) mg/dL Alkaline Phosphatase 132 H (38-126) U/L Crossmatch See Detail Assessment and Plan (1) Microcytic anemia Narrative/Plan: 71-year-old female who has multiple comorbidities including coronary artery disease, atrial fibrillation who is on Ahlquist and Plavix presented to the emergency department instructed by her day care home provider for low hemoglobin. On admission patient was noted for hemoglobin of 5.9 she is 2 units of PRBC transfusion. She denies any recent black stools, melena, or rectal bleeding. Denies any nausea vomiting or hematemesis. Patient does have a history of previous AVMs and underwent EGD on 09/01/[address] Gates with findings of 5 AVMs status post cautery. This is likely etiology at this time for GI blood loss. We will proceed with EGD tomorrow. Anticoagulation on hold. Current Visit: Yes Status: Acute Code(s): D50.9 - IRON DEFICIENCY ANEMIA, UNSPECIFIED SNOMED Code(s): 269756203 (2) History of atrial fibrillation Current Visit: Yes Status: Acute Code(s): Z86.79 - PERSONAL HISTORY OF OTHER DISEASES OF THE CIRCULATORY SYSTEM SNOMED Code(s): 847787061 (3) History of carotid endarterectomy Current Visit: Yes Status: Acute Code(s): Z98.890 - OTHER SPECIFIED POSTPROCEDURAL STATES SNOMED Code(s): 142204578 (4) Coronary artery disease Current Visit: Yes Status: Acute Code(s): I25.10 - ATHSCL HEART DISEASE OF [place] CORONARY ARTERY W/O ANG PCTRS SNOMED Code(s): 20390930 (5) Hypertension Current Visit: No Status: Acute Code(s): I10 - ESSENTIAL (PRIMARY) HYPERTENSION SNOMED Code(s): 08325444 Plan: 1. Continue symptomatic and supportive care 2. Agree with blood transfusion 3. Daily CBC, transfuse for hemoglobin less than 7 4. Hold Eliquis and Plavix 5. Nothing by mouth after midnight 6. Protonix 40 mg daily 7. Will proceed with EGD tomorrow. Risks and benefits discussed with patient and she is willing to proceed. Thank you for this consultation, we will continue to follow. Dr. Tyler Gates I agree with the dictator's note, documented as a scribe by Stefani Devries.
[2021-12-06] MEDS: PANTOPRAZOLE 40 MG TABLET PO SCH (06:40)
[2021-12-06 09:31] LABS: Anisocytosis Slight; Basophils # (A) 0.1 k/uL (0-0.2); Basophils % (A) 1 %; Eosinophils # (A) 0.2 k/uL (0-0.7); Eosinophils % (A) 2 %; HCT 27.9 % (34.0-46.0); Hypochromasia Marked; Lymphocytes # (A) 0.7 k/uL (1.0-4.8); Lymphocytes % (A) 7 %; MCH 22.1 pg (25.0-35.0); MCHC 28.6 g/dL (31.0-37.0); MCV 77.6 fL (80.0-100.0); Mean Platelet Volume 8.1; Microcytosis Slight; Monocytes # (A) 0.6 k/uL (0-1.0); Monocytes % (A) 6 %; Neutrophils # (A) 8.7 k/uL (1.3-7.7); Neutrophils % (A) 83 %; Platelet Count 272 k/uL (150-450); Poikilocytosis Marked; RBC 3.59 m/uL (3.80-5.40); RDW 17.9 % (11.5-15.5); WBC 10.6 k/uL (3.8-10.6)
[2021-12-06 09:47] LABS: ALT 17 U/L (4-34); African American GFR (CKD) >90 (>60 ml/min/1.73 sqM); Albumin 3.8 g/dL (3.5-5.0); Alkaline Phosphatase 120 U/L (38-126); Anion Gap 10 mmol/L; Calcium 8.8 mg/dL (8.4-10.2); Carbon Dioxide 18 mmol/L (22-30); Chloride 111 mmol/L (98-107); Magnesium 1.8 mg/dL (1.6-2.3); Non-African American GFR(CKD) >90 (>60 ml/min/1.73 sqM); Phosphorus 3.8 mg/dL (2.5-4.5); Potassium 3.8 mmol/L (3.5-5.1); Sodium 139 mmol/L (137-145); Total Protein 6.7 g/dL (6.3-8.2)
[2021-12-06 09:48] LABS: AST 26 U/L (14-36); Blood Urea Nitrogen 7 mg/dL (7-17); Glucose 86 mg/dL (74-99); Total Bilirubin 0.8 mg/dL (0.2-1.3)
[2021-12-06] MEDS ORDERED: LIDOCAINE 2% INJ 20 MG/ML (2 ML VIAL) ONE (12:34)
[2021-12-06] MEDS ORDERED: PROPOFOL 10 MG/ML 20 ML VIAL IV ONE (12:34)
[2021-12-06] MEDS ORDERED: IV FLUID CONTINUATION 500 ML IV ONE (12:46)
--- NOTE | 2021-12-06 12:50 | P.PCN ---
Date of Procedure: 12/06/21 Procedure(s) Performed: BRIEF HISTORY: Patient is a 64-year-old, pleasant, white female admitted hospital with severe symptomatic anemia and hemoglobin of 6.5 g/dL. She received intravenous of the abdomen evaluation yesterday and hemoglobin this morning is 9.4 g/dL. 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 Because of the recurrent anemia she is scheduled for an upper endoscopy today. She has been on eliquis for A fib which is on hold for 2 days. PROCEDURE PERFORMED: Esophagogastroduodenoscopy. PREOPERATIVE DIAGNOSIS: Anemia/GI bleed. IV sedation per anesthesia. PROCEDURE: After informed consent was obtained, the patient was brought into the endoscopy unit. IV sedation was administered by Anesthesia under continuous monitoring. Initially the Olympus GIF-140 video endoscope was inserted into the mouth. Esophagus intubated without any difficulty. It was gradually advanced into the stomach and duodenum and carefully examined. The bulb and the second part of the duodenum appeared normal. The scope at this time was withdrawn to the stomach, adequately insufflated with air, and upon careful examination, mucosa of the antrum, and scattered erosions but no ulcerations seen. Mucosa of the body, cardia and the fundus appeared normal. The scope was then withdrawn into the esophagus. The GE junction was located at 33 cm from the incisors. The esophagus appeared normal. There were no erosions or ulcerations seen and the patient tolerated the procedure well. IMPRESSION: 1. Scattered erosions and no active bleeding 2. No evidence of gastric or duodenal angiectasia. 3. Moderate size hiatal hernia . RECOMMENDATIONS: The findings of this examination were discussed with the patient as well as her family. She will be scheduled for small bowel capsule endoscopy today to evaluate for small bowel angiectasia..
[2021-12-06] MEDS ORDERED: SIMETHICONE 40 MG/0.6 ML DROPS 2,000 MG/30 ML BOTTLE PO ONE (13:50)
[2021-12-06] MEDS ORDERED: NITROGLYCERIN SL TABS 0.4 MG TAB SUBLINGUAL PRN (16:01)
[2021-12-06] MEDS: AMIODARONE 100 MG TAB PO SCH (17:11)
[2021-12-06] MEDS: LORATADINE 10 MG TAB PO SCH (17:11)
[2021-12-06] MEDS: SODIUM CHLORIDE 0.9% 1,000 ML IV SCH (17:43)
[2021-12-06] MEDS: METOPROLOL TARTRATE 50 MG TAB PO SCH (20:08)
[2021-12-06] MEDS ORDERED: LOSARTAN 50 MG TAB PO SCH (21:00)
[2021-12-07] MEDS: SODIUM CHLORIDE 0.9% 1,000 ML IV SCH (04:55)
[2021-12-07 04:57] VITALS: RESP 18
[2021-12-07] MEDS: PANTOPRAZOLE 40 MG TABLET PO SCH (06:34)
[2021-12-07] MEDS: AMIODARONE 100 MG TAB PO SCH (09:24)
[2021-12-07] MEDS: METOPROLOL TARTRATE 50 MG TAB PO SCH (09:24)
[2021-12-07] MEDS: LORATADINE 10 MG TAB PO SCH (09:24)
[2021-12-07 09:32] LABS: Anisocytosis Slight; Hypochromasia Marked; MCHC 28.4 g/dL (31.0-37.0); MCV 77.6 fL (80.0-100.0); Mean Platelet Volume 7.8; Microcytosis Slight; Platelet Count 250 k/uL (150-450); Poikilocytosis Marked; RBC 3.61 m/uL (3.80-5.40); RDW 18.3 % (11.5-15.5); WBC 9.5 k/uL (3.8-10.6)
--- NOTE | 2021-12-07 12:53 | P.PN ---
Subjective Progress Note Date: 12/07/21 Principal diagnosis: GI bleed This very pleasant 71-year-old female with a past medical history of coronary artery disease, atrial fibrillation on Eliquis, carotid stenosis status post carotid endarterectomy on Plavix, hyperlipidemia, hypertension and osteoarthritis. 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 On admission she was noted to have a hemoglobin of 5.9. She was given 2 units PRBC transfusion. Patient denies any blood in her stool, maroon colored stool, or black stool. Denies any abdominal pain, nausea or vomiting. She does have a history of previous GI bleed. She underwent EGD and colonoscopy on 09/01/[address] Gates. 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 Colonoscopy revealed multiple colon polyps st atus post polypectomy and scattered sigmoid diverticulosis. 12/07/2021. Patient was seen today as a follow-up for possible GI bleed, anemia. She underwent EGD yesterday with scattered erosions and no active bleeding. No evidence of gastric or duodenal angiectasia. Moderate size hiatal hernia. After the EGD patient underwent a small bowel video capsule endoscopy. Those results are currently pending. Patient denies any further bleeding. No black stools. Denies any nausea or vomiting. She is tolerating a regular diet. Repeat hemoglobin today stable at 8.0. She denies any abdominal pain, nausea, vomiting. No fevers chills. Objective - Vital Signs Vital signs: Vital Signs Temp 98.3 F 12/07/21 04:00 Pulse 79 12/07/21 04:00 Resp 18 12/07/21 04:00 BP 115/53 12/07/21 04:00 Pulse Ox 91 L 12/07/21 04:00 FiO2 Intake & Output 12/06/21 12/07/21 12/07/21 18:59 06:59 18:59 Intake Total 460 300 240 Output Total 250 Balance 210 300 240 Intake: IV 100 Oral 360 300 240 Output: Urine 250 Other: Voiding Method Toilet Toilet # Voids 1 1 - Exam General appearance: The patient is alert, oriented, appears in no acute distress. HET: Head is normocephalic and atraumatic. Conjunctiva pink. Sclera anicteric. Neck: Supple without lymphadenopathy. Abdomen: Soft, nontender, nondistended with bowel sounds. No guarding or rigidity. Extremities: Normal skin color and turgor. No pedal edema Skin: No rashes, no jaundice Neurological: No focal deficits. Alert and oriented -3. - Labs CBC & Chem 7: 12/07/21 08:46 12/06/21 07:35 Labs: Abnormal Lab Results - Last 24 Hours (Table) 12/06/21 12/06/21 Range/Units 07:35 07:35 RBC 3.59 L (3.80-5.40) m/uL Hgb 8.0 L D (11.4-16.0) gm/dL Hct 27.9 L (34.0-46.0) % MCV 77.6 L (80.0-100.0) fL MCH 22.1 L (25.0-35.0) pg MCHC 28.6 L (31.0-37.0) g/dL RDW 17.9 H (11.5-15.5) % Neutrophils # 8.7 H (1.3-7.7) k/uL Lymphocytes # 0.7 L (1.0-4.8) k/uL Chloride 111 H (98-107) mmol/L Carbon Dioxide 18 L (22-30) mmol/L Creatinine 0.42 L (0.52-1.04) mg/dL Assessment and Plan (1) Microcytic anemia Narrative/Plan: 71-year-old female who has multiple comorbidities including coronary artery disease, atrial fibrillation who is on Ahlquist and Plavix presented to the emergency department instructed by her sanitation superintendent for low hemoglobin. On admission patient was noted for hemoglobin of 5.9 she is 2 units of PRBC transfusion. She denies any recent black stools, melena, or rectal bleeding. Denies any nausea vomiting or hematemesis. Patient does have a history of previous AVMs and underwent EGD on 09/01/[address] Gates with findings of 5 AVMs status post cautery. This is likely etiology at this time for GI blood loss. We will proceed with EGD tomorrow. Anticoagulation on hold. Status post EGD and small bowel video capsule endoscopy. EGD found no active bleeding to scattered erosions no evidence of gastric or to an angiectasia, moderate size hiatal hernia. Small bowel capsule showed no active bleeding. Continue to hold anticoagulation for another 24-48 hours. A repeat CBC next week. Current Visit: Yes Status: Acute Code(s): D50.9 - IRON DEFICIENCY ANEMIA, UNSPECIFIED SNOMED Code(s): 857277661 (2) History of atrial fibrillation Current Visit: Yes Status: Acute Code(s): Z86.79 - PERSONAL HISTORY OF OTHER DISEASES OF THE CIRCULATORY SYSTEM SNOMED Code(s): 547732131 (3) History of carotid endarterectomy Current Visit: Yes Status: Acute Code(s): Z98.890 - OTHER SPECIFIED POSTPROCEDURAL STATES SNOMED Code(s): 570038726 (4) Coronary artery disease Current Visit: Yes Status: Acute Code(s): I25.10 - ATHSCL HEART DISEASE OF [place] CORONARY ARTERY W/O ANG PCTRS SNOMED Code(s): 36870825 (5) Hypertension Current Visit: No Status: Acute Code(s): I10 - ESSENTIAL (PRIMARY) HYPERTENSION SNOMED Code(s): 02940351 Plan: 1. Continue symptomatic and supportive care 2. Daily CBC, transfuse for hemoglobin less than 7 3. Hold Eliquis and Plavix for another 24 hours 4. Patient may have regular diet 5. Protonix 40 mg daily 6. EGD without any evidence of GI bleed. Small bowel video capsule endoscopy without any active bleeding. Thank you for this consultation, patient is cleared by gastroenterology for disc harge. Dr. Tyler Gates I agree with the dictator's note, documented as a scribe by Stefani GRIFFITHS .
--- NOTE | 2021-12-07 15:41 | P.DS ---
Providers Date of admission: 12/05/21 00:34 Attending physician: Lex Olmos Consults: 12/05/21 00:34 Consult Physician Routine Consulting Provider: Guerline Gates Consult Reason/Comments: gib Do you want consulting provider notified?: Yes Primary care physician: Lex Olmos - Discharge Diagnosis(es) (1) Chronic atrial fibrillation Current Visit: Yes Status: Acute (2) Anemia Current Visit: Yes Status: Chronic (3) GI bleed Current Visit: Yes Status: Acute (4) Hypertension Current Visit: No Status: Acute Hospital Course: This is discharge summary and [age]-year-old white female centimeter for acute GI bleed. Endoscopic was done which did show erosions but no active bleeding. She had small bowel study which is pending. She was received 2 units PRBC and was stabilized. The patient is now in stable condition hemodynamically tolerating diet and will follow up with me in about 3-4 days. We will hold off anti coagulation until we see stabilizing blood work. Patient Condition at Discharge: Good Plan - Discharge Summary New Discharge Prescriptions: Continue Nitroglycerin Sl Tabs [Nitrostat] 0.4 mg SUBLINGUAL Q5M PRN #50 tab PRN Reason: Chest Pain Amiodarone [Cordarone] 100 mg PO QAM Metoprolol Tartrate [Lopressor] 50 mg PO BID Cetirizine HCl [Zyrtec] 10 mg PO DAILY Losartan Potassium [Cozaar] 100 mg PO HS Discontinued Apixaban [Eliquis] 5 mg PO BID #60 tab Clopidogrel [Plavix] 75 mg PO HS Discharge Medication List Nitroglycerin Sl Tabs [Nitrostat] 0.4 mg SUBLINGUAL Q5M PRN #50 tab 08/26/19 [Rx] Amiodarone [Cordarone] 100 mg PO QAM 11/09/19 [History] Metoprolol Tartrate [Lopressor] 50 mg PO BID 11/09/19 [History] Cetirizine HCl [Zyrtec] 10 mg PO DAILY 12/05/21 [History] Losartan Potassium [Cozaar] 100 mg PO HS 12/05/21 [History] Follow up Appointment(s)/Referral(s): Lex Olmos MD [Primary Care Provider] - 1-2 days
[2021-12-07 16:35] VITALS: BP 177/82; PULSE 65; TEMP 97.3
== END 2021-12-07 16:31 | disposition home or self-care (01) | DRG 378 ==
LOC: EC 22:30 → 3SCARD 12-05 00:34
PROVIDERS: ADMIT Family Medicine; ATTEND Family Medicine
PROC: 30233N1 Transfusion of Nonautologous Red Blood Cells into Peripheral Vein, Percutaneous Approach (ICD-10-PCS; 2021-12-05)
PROC: 0DJ07ZZ Inspection of Upper Intestinal Tract, Via Natural or Artificial Opening (ICD-10-PCS; 2021-12-06)
PROC: 0DJ08ZZ Inspection of Upper Intestinal Tract, Via Natural or Artificial Opening Endoscopic (ICD-10-PCS; principal; 2021-12-06 08:40)
DX: K92.2 Gastrointestinal hemorrhage, unspecified (principal); I48.20 Chronic atrial fibrillation, unspecified; K25.9 Gastric ulcer, unspecified as acute or chronic, without hemorrhage or perforation; E78.5 Hyperlipidemia, unspecified; I25.10 Atherosclerotic heart disease of native coronary artery without angina pectoris; D50.9 Iron deficiency anemia, unspecified; I10 Essential (primary) hypertension; K44.9 Diaphragmatic hernia without obstruction or gangrene; M19.90 Unspecified osteoarthritis, unspecified site; K57.30 Diverticulosis of large intestine without perforation or abscess without bleeding; Z79.01 Long term (current) use of anticoagulants; Z79.899 Other long term (current) drug therapy; Z86.010 Personal history of colon polyps; Z82.49 Family history of ischemic heart disease and other diseases of the circulatory system; Z83.3 Family history of diabetes mellitus; Z87.891 Personal history of nicotine dependence; Z28.21 Immunization not carried out because of patient refusal; Z60.2 Problems related to living alone; Z81.1 Family history of alcohol abuse and dependence; Z87.11 Personal history of peptic ulcer disease; Z98.51 Tubal ligation status; Z98.890 Other specified postprocedural states; Z94.89 Other transplanted organ and tissue status; Z80.9 Family history of malignant neoplasm, unspecified
CPT/HCPCS: 36415; 43235; 80053; 80061; 83690; 83735; 84100; 84443; 84484; 85025; 85027; 85730; 86850; 86900; 86901; 86920; 91110; 96361; 96374; 96375; 99285

== ENCOUNTER → 2021-12-04 | Outpatient (CLI) | payer MEDICARE, OTHER ==
[2021-12-04 18:26] LABS: ALT 18 U/L (8-44); AST 15 U/L (13-35); African American GFR (CKD) 109.6 (60.0-200.0); Albumin 4.1 g/dL (3.8-4.9); Albumin/Globulin Ratio 1.57 (1.60-3.17); Alkaline Phosphatase 131 U/L (41-126); BUN/Creat Ratio 27.15 Ratio (12.00-20.00); Blood Urea Nitrogen 15.5 mg/dL (9.0-27.0); Calcium 9.1 mg/dL (8.7-10.3); Carbon Dioxide 17.7 mmol/L (20.0-27.5); Chloride 110 mmol/L (96-109); Chol/HDL Ratio 3.41 Ratio; Globulin 2.6 g/dL (1.6-3.3); Glucose 99 mg/dL (70-110); LDL Cholesterol,Calculated 77.6 mg/dL (0.0-131.0); Non-African American GFR(CKD) 94.5 (60.0-200.0); Potassium 4.6 mmol/L (3.5-5.5); Sodium 141 mmol/L (135-145); Total Protein 6.7 g/dL (6.2-8.2)
[2021-12-04 19:01] LABS: HCT 20.9 % (37.2-46.3); MCH 18.9 pg (27.0-32.0); MCHC 24.9 g/dL (32.0-37.0); Mean Platelet Volume 10.7 fL (9.5-12.2); NRBC Per 100 WBC 0 /100 WBCS (0.0-0.0); Platelet Count 281 X 10*3/uL (140-440); RBC 2.75 X 10*6/uL (4.10-5.20); RDW 18.8 % (11.5-14.5); WBC 9.11 X 10*3/uL (4.50-10.00)
[2021-12-05 09:17] LABS: HGB 5.2 g/dL (12.0-15.0)
== END | disposition home or self-care (01) ==
LOC: LABWHC1 09:43
PROVIDERS: ATTEND Nurse Practitioner Adult Health
DX: I10 Essential (primary) hypertension (principal); E78.2 Mixed hyperlipidemia; I48.0 Paroxysmal atrial fibrillation
CPT/HCPCS: 36415; 80053; 80061; 84443; 85027

== ENCOUNTER → 2022-01-07 | Outpatient (CLI) | payer MEDICARE, OTHER ==
[2022-01-07 10:57] LABS: HCT 35.6 % (37.2-46.3); MCH 25.1 pg (27.0-32.0); MCHC 28.1 g/dL (32.0-37.0); MCV 89.2 fL (80.0-97.0); Mean Platelet Volume 10.4 fL (9.5-12.2); NRBC Per 100 WBC 0 /100 WBCS (0.0-0.0); Platelet Count 235 X 10*3/uL (140-440); RBC 3.99 X 10*6/uL (4.10-5.20); RDW 23.8 % (11.5-14.5); WBC 9.43 X 10*3/uL (4.50-10.00)
== END | disposition home or self-care (01) ==
LOC: LABWHC1 07:35
PROVIDERS: ATTEND Internal Medicine Clinical Cardiac Electrophysiology
DX: D64.9 Anemia, unspecified (principal)
CPT/HCPCS: 36415; 85027

== ENCOUNTER → 2022-04-15 | Outpatient (CLI) | payer MEDICARE, OTHER ==
[2022-04-15 19:53] LABS: HCT 23.1 % (37.2-46.3); HGB 6.3 g/dL (12.0-15.0); MCH 23.6 pg (27.0-32.0); MCHC 27.3 g/dL (32.0-37.0); MCV 86.5 fL (80.0-97.0); Mean Platelet Volume 11.4 fL (9.5-12.2); NRBC Per 100 WBC 0 /100 WBCS (0.0-0.0); Platelet Count 300 X 10*3/uL (140-440); RBC 2.67 X 10*6/uL (4.10-5.20); RDW 16.7 % (11.5-14.5); WBC 9.08 X 10*3/uL (4.50-10.00)
== END | disposition home or self-care (01) ==
LOC: LABWHC1 11:24
PROVIDERS: ATTEND Internal Medicine Interventional Cardiology
DX: D64.9 Anemia, unspecified (principal)
CPT/HCPCS: 36415; 85027

== ENCOUNTER → 2022-04-29 | Outpatient (CLI) | payer MEDICARE, OTHER ==
[2022-04-29 23:50] LABS: HCT 30.2 % (37.2-46.3); HGB 8.3 g/dL (12.0-15.0); MCH 25.7 pg (27.0-32.0); MCHC 27.5 g/dL (32.0-37.0); MCV 93.5 fL (80.0-97.0); Mean Platelet Volume 11.6 fL (9.5-12.2); NRBC Per 100 WBC 0 /100 WBCS (0.0-0.0); Platelet Count 325 X 10*3/uL (140-440); RBC 3.23 X 10*6/uL (4.10-5.20); RDW 20.4 % (11.5-14.5); WBC 9.27 X 10*3/uL (4.50-10.00)
== END | disposition home or self-care (01) ==
LOC: LABWHC1 13:39
PROVIDERS: ATTEND Internal Medicine Interventional Cardiology
DX: D64.9 Anemia, unspecified (principal)
CPT/HCPCS: 36415; 85027

== ENCOUNTER → 2022-05-14 | Outpatient (CLI) | payer MEDICARE, OTHER ==
[2022-05-14 14:25] LABS: HCT 36.7 % (37.2-46.3); HGB 10.3 g/dL (12.0-15.0); MCH 25.8 pg (27.0-32.0); MCHC 28.1 g/dL (32.0-37.0); Mean Platelet Volume 10.6 fL (9.5-12.2); NRBC Per 100 WBC 0 /100 WBCS (0.0-0.0); Platelet Count 275 X 10*3/uL (140-440); RBC 3.99 X 10*6/uL (4.10-5.20); RDW 18.6 % (11.5-14.5); WBC 7.15 X 10*3/uL (4.50-10.00)
== END | disposition home or self-care (01) ==
LOC: LABWHC1 09:25
PROVIDERS: ATTEND Family Medicine
DX: D64.9 Anemia, unspecified (principal)
CPT/HCPCS: 36415; 85027

== ENCOUNTER → 2022-06-12 | Outpatient (CLI) | payer MEDICARE, OTHER ==
[2022-06-12 15:38] LABS: HCT 33.7 % (37.2-46.3); HGB 9.4 g/dL (12.0-15.0); MCH 25.7 pg (27.0-32.0); MCHC 27.9 g/dL (32.0-37.0); MCV 92.1 fL (80.0-97.0); Mean Platelet Volume 10.6 fL (9.5-12.2); NRBC Per 100 WBC 0 /100 WBCS (0.0-0.0); Platelet Count 288 X 10*3/uL (140-440); RBC 3.66 X 10*6/uL (4.10-5.20); RDW 16.7 % (11.5-14.5); WBC 9.87 X 10*3/uL (4.50-10.00)
[2022-06-12 15:39] LABS: INR 0.96 (0.90-1.11); Prothrombin Time 10.9 sec (9.9-11.9)
[2022-06-12 15:48] LABS: BUN/Creat Ratio 25.33 Ratio (12.00-20.00); Blood Urea Nitrogen 15.2 mg/dL (9.0-27.0); Calcium 9.5 mg/dL (8.7-10.3); Non-African American GFR(CKD) 92.4 (60.0-200.0); Potassium 4.6 mmol/L (3.5-5.5)
== END | disposition home or self-care (01) ==
LOC: LABWHC1 08:31
PROVIDERS: ATTEND Nurse Practitioner Family
DX: I48.91 Unspecified atrial fibrillation (principal)
CPT/HCPCS: 36415; 80048; 85027; 85610

== ENCOUNTER → 2022-07-02 | Outpatient (CLI) | payer MEDICARE, OTHER ==
[2022-07-02 14:13] LABS: HCT 30.2 % (37.2-46.3); HGB 8.6 g/dL (12.0-15.0); MCHC 28.5 g/dL (32.0-37.0); MCV 91.2 fL (80.0-97.0); Mean Platelet Volume 9.8 fL (9.5-12.2); NRBC Per 100 WBC 0 /100 WBCS (0.0-0.0); Platelet Count 341 X 10*3/uL (140-440); RBC 3.31 X 10*6/uL (4.10-5.20); RDW 16.4 % (11.5-14.5); WBC 8.62 X 10*3/uL (4.50-10.00)
[2022-07-02 14:31] LABS: ALT 23 U/L (8-44); AST 17 U/L (13-35); Chol/HDL Ratio 3.59 Ratio; LDL Cholesterol,Calculated 73.4 mg/dL (0.0-131.0); VLDL Calculation 18.22 mg/dL (5.00-40.00)
== END | disposition home or self-care (01) ==
LOC: LABWHC1 08:07
PROVIDERS: ATTEND Nurse Practitioner Adult Health
DX: I48.0 Paroxysmal atrial fibrillation (principal); E78.2 Mixed hyperlipidemia
CPT/HCPCS: 36415; 80061; 84450; 84460; 85027

== ENCOUNTER → 2022-10-29 | Outpatient (CLI) | payer MEDICARE, OTHER ==
--- NOTE | 2022-10-30 18:19 | MM ---
Reason for Exam: Screening (asymptomatic). Last mammogram was performed 4 year(s) and 6 month(s) ago. Patient History: Menarche at age 19. First Full-Term at age 28. Postmenopausal. Estrogen, from age 50 until age 55. Progesterone, from age 50 until age 55. Risk Values: [place] 5 year model risk: 1.7%. NCI Lifetime model risk: 5.1%. Prior Study Comparison: 09/27/2003 Left Special View Mammogram, [facility]. 09/03/2005 Bilateral Diagnostic Mammogram, [facility]. 05/05/2018 Bilateral Screening Mammogram, [facility]. Tissue Density: There are scattered fibroglandular densities. Findings: Analyzed By CAD. Pattern appears symmetrical and stable. Benign-appearing calcification is present bilaterally. No suspicious groups of microcalcifications, spiculated or lobular masses, architectural distortion or other secondary signs of malignancy are mammographically apparent. Overall Assessment: Benign, BI-RAD 2 Management: Screening Mammogram of both breasts in 1 year. A negative mammogram report should not preclude additional follow up of suspicious palpable abnormalities. Patient should continue monthly self breast exam. A clinical breast exam by your physician is recommended on an annual basis and results should be correlated with mammographic findings. Electronically signed and approved by: Obinna Atkins D.O. Radiologis
== END | disposition home or self-care (01) ==
LOC: RADMAMWWP 09:51
PROVIDERS: ATTEND Family Medicine
DX: Z12.31 Encounter for screening mammogram for malignant neoplasm of breast (principal); Z78.0 Asymptomatic menopausal state
CPT/HCPCS: 77063; 77067

== ENCOUNTER → 2023-09-08 | Outpatient (CLI) | payer MEDICARE, OTHER ==
[2023-09-08 16:18] LABS: Carbon Dioxide 21.7 mmol/L (21.6-31.8); Chloride 106 mmol/L (96-109); Glucose 93 mg/dL (70-110); LDL Cholesterol,Calculated 56.3 mg/dL (0.0-131.0); Sodium 139 mmol/L (135-145)
[2023-09-08 16:19] LABS: ALT 28 U/L (8-44); AST 23 U/L (13-35); Albumin 4.3 g/dL (3.8-4.9); Albumin/Globulin Ratio 1.48 Ratio (1.60-3.17); Alkaline Phosphatase 141 U/L (41-126); Calcium 9.5 mg/dL (8.7-10.3); Globulin 2.9 g/dL (1.6-3.3); Total Bilirubin 0.3 mg/dL (0.3-1.2); Total Protein 7.2 g/dL (6.2-8.2)
== END | disposition home or self-care (01) ==
LOC: LABWHC1 07:47
PROVIDERS: ATTEND Internal Medicine Interventional Cardiology
DX: E78.2 Mixed hyperlipidemia (principal)
CPT/HCPCS: 36415; 80053; 80061